=== PATIENT | female | born 1945 | race Hispanic/Latino ===

== ENCOUNTER 2018-05-20 12:11 | Inpatient (IN) | payer MEDICARE ==
[2018-05-20 12:44] LABS: VENOUS BLOOD GAS BASE EXCESS 7.1 mmol/L (0.0-2.0); VENOUS BLOOD GAS PCO2 45 mmHg (40-60); VENOUS BLOOD GAS PO2 24 mm/Hg (30-55); VENOUS BLOOD PH 7.46 (7.32-7.43)
[2018-05-20 12:54] LABS: BASO # 0.1 K/uL (0.0-0.2); BASO % 0.5 % (0.0-2.0); HEMOGLOBIN 9.6 g/dL (11.0-16.0); LYMPH # 1.4 K/uL (1.0-4.3); LYMPH % 7.4 % (20.0-40.0); MEAN CELL VOLUME 81.9 fL (81.0-99.0); MEAN CORPUSCULAR HEMOGLOBIN 25.9 pg (27.0-31.0); MEAN CORPUSCULAR HGB CONC 31.6 g/dL (33.0-37.0); MEAN PLATELET VOLUME 7.2 fL (7.2-11.7); MONO # 1.2 K/uL (0.0-0.8); MONO % 6.7 % (0.0-10.0); NEUT % 85.4 % (50.0-75.0); RED CELL DISTRIBUTION WIDTH 20.4 % (11.5-14.5); WHITE BLOOD COUNT 18.7 K/uL (4.8-10.8)
[2018-05-20 13:07] LABS: PLATELET COUNT 1023 K/uL (130-400)
[2018-05-20 13:10] LABS: ALB/GLOB RATIO 0.7 (1.0-2.1); ALBUMIN 3.1 g/dL (3.5-5.0); ALT/SGPT 31 U/L (9-52); AST/SGOT 193 U/L (14-36); BLOOD UREA NITROGEN 19 mg/dL (7-17); CALCIUM 9.2 mg/dl (8.6-10.4); GFR NON-AFRICAN AMERICAN > 60
[2018-05-20 13:25] LABS: SQUAMOUS EPITHIAL 2 /hpf (0-5); URINE AMORPHOUS SEDIMENT RARE /ul (<OCC); URINE BACTERIA RARE (<OCC); URINE BILIRUBIN NEGATIVE (NEGATIVE); URINE BLOOD NEGATIVE (NEGATIVE); URINE CLARITY Turbid (Clear); URINE COLOR Amber (YELLOW); URINE GLUCOSE (UA) NORMAL (Normal); URINE LEUKOCYTE ESTERASE NEG Leu/uL (Negative); URINE PROTEIN 2+ mg/dL (NEGATIVE); URINE UROBILINOGEN NORMAL mg/dL (0.2-1.0)
[2018-05-20 13:31] LABS: ANISOCYTOSIS SLIGHT; LYMPHOCYTE 10 % (20-40); MONOCYTE 9 % (0-10); NEUTROPHIL 82 % (50-75); PLATELET ESTIMATE MARKEDLY INCREASED (NORMAL); POIKILOCYTOSIS SLIGHT; TOTAL CELLS COUNTED 100
[2018-05-20 13:32] LABS: GIANT PLATELETS PRESENT; HYPOCHROMIC SLIGHT; LARGE PLATELETS PRESENT; OVALOCYTES SLIGHT; TARGET CELLS SLIGHT
--- NOTE | 2018-05-20 13:32 | C.PDOC ---
History Of Present Illness WORSENING GEN WEAKNESS, AMS SINCE 05/16. ADMITTED @ [facility] 04/29, DX METASTATIC CA, +PE, PNEUMONIA. DC 05/12 TO [facility]. S/P SLIP AND FALL, READMITTED [facility] 05/14, "NEG HEAD SCAN" PER . READMITTED TO [place], SINCE THEN W DECR APPETITE, +10 LB WT LOSS, GEN WEAKNESS. ABLE TO WALK BUT NOW TOO WEAK TO STAND. NO FEVER, NV. ON ELIQUIS. PT CO GEN WEAKNESS, DENIES FOCAL PAIN OR GI BLEED. STATES BROUGHT PT TO DR CHAUDHRY FOR SECOND OPINION ON PROBABLE METASTATIC CA. EXAM MOD DIST APPEARS WEAK, CACHECTIC HEENT ATRAUM; MM DRY; EOMI NECK SUPPLE LUNGS CTA B/L NO W/R/R ABD +RUQ SWELL, TENSE NONTEND SOFT NEURO NO GROSS FOCAL DEF AO3 SKIN INTACT NO ULCERATION; MULT OLD ECHYMOSIS BUTTOCKS, B/L UE/LE EXT AROM WO DIFF NO GROSS DEFORM REMAINDER NEG Time Seen by Provider: 05/20/18 13:05 Chief Complaint (Nursing): Shortness Of Breath History Per: Patient, Family History/Exam Limitations: None Onset/Duration Of Symptoms: Days Current Symptoms Are (Timing): Still Present Past Medical History Reviewed: Historical Data, Nursing Documentation, Vital Signs Vital Signs: Last Vital Signs Temp 99.6 F 05/20/18 13:13 Pulse 121 H 05/20/18 13:13 Resp 35 H 05/20/18 13:13 BP 118/79 05/20/18 13:13 Pulse Ox 95 05/20/18 12:25 - Medical History PMH: Bronchitis, Pneumonia, Pulmonary Embolism Surgical History: No Surg Hx Family History: States: No Known Family Hx - Social History Hx Alcohol Use: No Hx Substance Use: No - Immunization History Hx Tetanus Toxoid Vaccination: No Hx Influenza Vaccination: No Hx Pneumococcal Vaccination: No Review Of Systems Except As Marked, All Systems Reviewed And Found Negative. Constitutional: Positive for: Weakness. Negative for: Fever, Chills Neurological: Positive for: Altered Mental Status Physical Exam - Physical Exam Appears: Other (moderate distress, weak,cachectic) Skin: Normal Color, Warm, Dry, Ecchymosis (mult old echymosis to b/l UE/LE and buttocks) Head: Atraumatic, Normacephalic Eye(s): bilateral: Normal Inspection, EOMI Oral Mucosa: Dry Neck: Supple Cardiovascular: Rhythm Regular Respiratory: Normal Breath Sounds, No Rales, No Rhonchi, No Wheezing Gastrointestinal/Abdominal: Soft, No Tenderness, No Guarding, No Rebound, Other (RUQ swelling, tense abdomen) Extremity: Normal ROM (AROM w/o difficulty), No Deformity Neurological/Psych: Oriented x3 (AO3), Other (no gross focal deficits) ED Course And Treatment - Laboratory Results Result Diagrams: 05/20/18 12:45 05/20/18 12:45 Lab Results: pO2 24 mm/Hg (30-55) L 05/20/18 12:40 VBG pH 7.46 (7.32-7.43) H 05/20/18 12:40 VBG pCO2 45 mmHg (40-60) 05/20/18 12:40 VBG HCO3 29.1 mmol/L 05/20/18 12:40 VBG Total CO2 33.4 mmol/L (22-28) H 05/20/18 12:40 VBG O2 Sat (Calc) 30.4 % (40-65) L 05/20/18 12:40 VBG Base Excess 7.1 mmol/L (0.0-2.0) H 05/20/18 12:40 VBG Potassium 4.8 mmol/L (3.6-5.2) 05/20/18 12:40 Sodium 137.0 mmol/l (132-148) 05/20/18 12:40 Chloride 103.0 mmol/L (98-107) 05/20/18 12:40 Glucose 94 mg/dl (65-105) 05/20/18 12:40 Lactate 2.9 mmol/L (0.7-2.1) H 05/20/18 12:40 Total Bilirubin 1.4 mg/dL (0.2-1.3) H 05/20/18 12:45 AST 193 U/L (14-36) H 05/20/18 12:45 ALT 31 U/L (9-52) 05/20/18 12:45 Alkaline Phosphatase 724 U/L (38-126) H 05/20/18 12:45 Total Protein 7.3 g/dL (6.3-8.3) 05/20/18 12:45 Albumin 3.1 g/dL (3.5-5.0) L 05/20/18 12:45 Globulin 4.2 gm/dL (2.2-3.9) H 05/20/18 12:45 Albumin/Globulin Ratio 0.7 (1.0-2.1) L 05/20/18 12:45 Urine Color Maddie (YELLOW) 05/20/18 13:08 Urine Clarity Turbid (Clear) 05/20/18 13:08 Urine pH 5.0 (5.0-8.0) 05/20/18 13:08 Ur Specific [place] 1.024 (1.003-1.030) 05/20/18 13:08 Urine Protein 2+ mg/dL (NEGATIVE) H 05/20/18 13:08 Urine Glucose (UA) Normal mg/dL (Normal) 05/20/18 13:08 Urine Ketones Negative mg/dL (NEGATIVE) 05/20/18 13:08 Urine Blood Negative (NEGATIVE) 05/20/18 13:08 Urine Nitrate Negative (NEGATIVE) 05/20/18 13:08 Urine Bilirubin Negative (NEGATIVE) 05/20/18 13:08 Urine Urobilinogen Normal mg/dL (0.2-1.0) 05/20/18 13:08 Ur Leukocyte Esterase Neg Eva/uL (Negative) 05/20/18 13:08 Urine WBC (Auto) 5 /hpf (0-5) 05/20/18 13:08 Urine RBC (Auto) 2 /hpf (0-3) 05/20/18 13:08 Ur Squamous Epith Cells 2 /hpf (0-5) 05/20/18 13:08 Amorphous Sediment Rare /ul (<OCC) H 05/20/18 13:08 Urine Bacteria Rare (<OCC) 05/20/18 13:08 ECG: Interpreted By Me ECG Rhythm: Sinus Tachycardia ECG Interpretation: Abnormal Rate From EC O2 Sat by Pulse Oximetry: 95 (RA) Pulse Ox Interpretation: Normal - Other Rad CXR X-Ray: Viewed By Me, Read By Radiologist Interpretation: Chest x-ray single frontal view. HISTORY: Altered mental st atus. COMPARISON: None available. Findings: Right PICC line with tip extending to the cavoatrial junction. Small loculated right pleural effusion. Consolidative opacifications seen within the right mid to lower lung zone as well as the left lung base. Radiopaque rounded density projecting over the right lung base. Enlarged ectatic aorta. Cardiomegaly. Scoliotic curvature of the spine. Degenerative changes in the spine. Impression: Right PICC line with tip extending to the cavoatrial junction. Small loculated right pleural effusion. Consolidative opacifications seen within the right mid to lower lung zone as well as the left lung base. Radiopaque rounded density projecting over the right lung base. Enlarged ectatic aorta. Cardiomegaly. Scoliotic curvature of the spine. Degenerative changes in the spine. - CT Scan/US CT-Head Other Rad Studies (CT/US): Read By Radiologist, Radiology Report Reviewed CT/US Interpretation: Date of service: 05/20/2018. PROCEDURE: CT HEAD WITHOUT CONTRAST. HISTORY: trauma ams ON ELIQUIS. COMPARISON: None available. TECHNIQUE: Axial computed tomography images were obtained through the head/brain without intravenous contrast. Radiation dose: Total exam DLP = 867.35 mGy-cm. This CT exam was performed using one or more of the following dose reduction techniques: Automated exposure control, adjustment of the mA and/or kV according to patient size, and/or use of iterative reconstruction technique. FINDINGS: HEMORRHAGE: No intracranial hemorrhage. BRAIN: No mass effect or edema. Mild-moderate cerebral atrophy present. Bilateral patchy deep white matter areas of hypodensity without gross mass effect-chronic microvascular ischemic changes compatible with this.. Those findings are in the centrum semiovale location. Right frontal subcortical hypodensity sagittal series 601, image 32 and coronal series 602, image 76-chronicity of this is unclear. No hemorrhage here noted. No definitive mass effect associated here noted either. May also be related to white matter ischemic changes. Chronicity unknown no comparison studies are available. If further evaluation is needed consider MRI of the brain. VENTRICLES: Lateral 3rd and 4th mild ventriculomegaly probably commensurate with the degree of atrophy. CALVARIUM: Unremarkable. PARANASAL SINUSES: Unremarkable as visualized. No significant inflammatory changes. MASTOID AIR CELLS: Unremarkable as visualized. No inflammatory changes. OTHER FINDINGS: None. IMPRESSION: No intracranial hemorrhage or mass effect. Cerebral atrophy and deep white matter and right frontal lobe subcortical hypodensities possibly relating to white matter ischemic changes. The chronicity of all these findings is unknown. No gross associated mass effect on anyone site appreciated. Clinical correlation and follow-up recommended. CT-Chest Other Rad Studies (CT/US): Read By Radiologist, Radiology Report Reviewed CT/US Interpretation: IMPRESSION: Multiple emboli present left and right pulmonary arteries and more distal left lower lobe pulmonary branches as detailed above. This was discussed directly with the ER physician prior to concluding this exam. Apparently the patient had a outside study referencing pulmonary emboli and hence the reason for patient's blood thinner medication. Clots also noted in the IVC and at minimum left common iliac vein-chronicity unknown. Right pleural thickening/with pleural fluid possibly loculated. Bilateral pleural based nodules much more numerous and larger on the right side as detailed above. Pleural based metastases are a consideration. Correlation with prior outside imaging recommended. Severe dextroscoliosis thoracic no gross bony lytic lesions seen. Large expansile mass essentially replacing the right hepatic lobe with mass effect displacement on the right kidney. Malignancy is suspect. Nonspecific right renal and splenic lesions. Benign and malignant etiologies here possible. Nonvisualized right adrenal gland. Nonvisualized gallbladder. No dilated ducts. Subcutaneous edema asymmetrically prominent blending amorphous fluid like density right lateral inferior chest wall and upper abdomen asymmetrical fluid. However liquified blood along with edema can also simulate this. No hyperdense typical hemorrhage seen. Clinical correlation and follow-up recommended. Other findings as above. Progress - Re-Evaluation Re-evaluation Note: 05/20/18 13:29 D/W DR Gillian CHAUDHRY: PENDING PT INFO FROM [facility]. AWARE OF ER FINDINGS, WILL CONSULT. 05/20/18 13:36 d/w pt pmd dr leos [phone]: ASCITES, 15 CM LIVER PROB METS, ?COLON OR RENAL CA. FAILED ATTEMPT COLONOSCOPY; LIVER BIOPSY +ADENOCARCINOMA. +PLEURAL EFFUSION. NEG HEAD CT FROM TRAUMA 05/16 CHEM WNL LFT WNL WBC 10 PLT 201 05/20/18 15:52 D/W DR CALIXTO CHEST CLOT PA HYPOPLASIA, R PLEURAL EFFUSION, NODULES A/P LG LIVER MASS R HEPATIC LOBE 15 CM; SPLENIC LESION; R RENAL MASS; CLOTS IVC TO L COMMON ILIAC NO HEMORRHAGE 05/20/18 16:37 d/w dr HARRELL [facility] [employer] CONSULTANT AWARE OF ER FINDINGS WILL ADMIT - Data Reviewed Data Reviewed: Lab, Diagnostic imaging, EKG, Old records - Critical Care Citical Care: Excluding Proc Time Critical Care Time: 90 minutes Medical Decision Making Medical Decision Making: Plan: --Labs --UA --EKG --CXR --CT-Head --CT-Chest/Abd/Pelv. Disposition - Disposition Disposition: HOSPITALIZED Disposition Time: 16:01 Condition: SERIOUS Instructions: Weakness (ED) Forms: [facility] (U[place]) - POA Present On Arrival: Falls Or Trauma - Clinical Impression Clinical Impression: Metastatic cancer, Generalized weakness - Scribe Statement The provider has reviewed the documentation as recorded by the Kwasi Briscoe Provider Attestation: All medical record entries made by the Kwasi were at my direction and personally dictated by me. I have reviewed the chart and agree that the record accurately reflects my personal performance of the history, physical exam, medical decision making, and the department course for this patient. I have also personally directed, reviewed, and agree with the discharge instructions and disposition.
--- NOTE | 2018-05-20 14:01 | RAD ---
Chest x-ray single frontal view HISTORY: Altered mental status. COMPARISON: None available. Findings: Right PICC line with tip extending to the cavoatrial junction. Small loculated right pleural effusion. Consolidative opacifications seen within the right mid to lower lung zone as well as the left lung base. Radiopaque rounded density projecting over the right lung base. Enlarged ectatic aorta. Cardiomegaly. Scoliotic curvature of the spine. Degenerative changes in the spine. Impression: Right PICC line with tip extending to the cavoatrial junction. Small loculated right pleural effusion. Consolidative opacifications seen within the right mid to lower lung zone as well as the left lung base. Radiopaque rounded density projecting over the right lung base. Enlarged ectatic aorta. Cardiomegaly. Scoliotic curvature of the spine. Degenerative changes in the spine.
[2018-05-20] MEDS ORDERED: Iodixanol 320 MG/ML 100 ML BOTTLE IV ONE (14:18)
--- NOTE | 2018-05-20 15:16 | CT ---
Date of service: 05/20/2018 PROCEDURE: CT HEAD WITHOUT CONTRAST. HISTORY: trauma ams ON ELIQUIS COMPARISON: None available. TECHNIQUE: Axial computed tomography images were obtained through the head/brain without intravenous contrast. Radiation dose: Total exam DLP = 867.35 mGy-cm. This CT exam was performed using one or more of the following dose reduction techniques: Automated exposure control, adjustment of the mA and/or kV according to patient size, and/or use of iterative reconstruction technique. FINDINGS: HEMORRHAGE: No intracranial hemorrhage. BRAIN: No mass effect or edema. Mild-moderate cerebral atrophy present. Bilateral patchy deep white matter areas of hypodensity without gross mass effect-chronic microvascular ischemic changes compatible with this.. Those findings are in the centrum semiovale location Right frontal subcortical hypodensity sagittal series 601, image 32 and coronal series 602, image 76-chronicity of this is unclear. No hemorrhage here noted. No definitive mass effect associated here noted either. May also be related to white matter ischemic changes. Chronicity unknown no comparison studies are available. If further evaluation is needed consider MRI of the brain VENTRICLES: Lateral 3rd and 4th mild ventriculomegaly probably commensurate with the degree of atrophy CALVARIUM: Unremarkable. PARANASAL SINUSES: Unremarkable as visualized. No significant inflammatory changes. MASTOID AIR CELLS: Unremarkable as visualized. No inflammatory changes. OTHER FINDINGS: None. IMPRESSION: No intracranial hemorrhage or mass effect. Cerebral atrophy and deep white matter and right frontal lobe subcortical hypodensities possibly relating to white matter ischemic changes. The chronicity of all these findings is unknown. No gross associated mass effect on anyone site appreciated. Clinical correlation and follow-up recommended.
--- NOTE | 2018-05-20 16:15 | CT ---
Date of service: 05/20/2018 PROCEDURE: CT Chest, Abdomen and Pelvis with intravenous contrast HISTORY: trauma ams ON ELIQUIS COMPARISON: None available. TECHNIQUE: IV dose administered: 100 cc Visipaque 320 Radiation dose: Total exam DLP = 438.16 mGy-cm. This CT exam was performed using one or more of the following dose reduction techniques: Automated exposure control, adjustment of the mA and/or kV according to patient size, and/or use of iterative reconstruction technique. FINDINGS: CT CHEST WITH CONTRAST: LUNGS: Severe dextroscoliosis with the right hemithoracic hypoplasia noted. Extensive right pleural thickening/right pleural effusion some of which may be loculated is also noted. This blends with right perifissural and right basal consolidation and air bronchograms. Pleural base nodules and perifissural nodules and/or loculated fluid components-with Hounsfield units greater than 20 are noted one perifissural near the right lung base measures 2.8 by 1.7 cm. Another anterior lateral to it also at the right lung base measures 1.5 x 1.5 cm. Findings are noted on axial series 3 and 4, image 61. Additional areas of pleural based nodularity blending with areas of consolidation are seen more cephalad posterior right upper lobe series 4, image 30 1.5 cm in maximum dimension here and lateral pleural-based nodule right upper lobe 1.4 cm (series 4, image 27. Coalescent pleural-based nodularity is lateral level of the franko noted on series 4, image 42. Additional small pleural base nodules right lateral lung base more anterior and lateral series 4, image 70 1 measures 6 by another focus is approximately 12 mm (series 4, image 72. Pleural-based metastatic lesions needed be considered. Sub cm pleural-based calcification left lung base laterally series 4, image 65 sub cm left posterolateral pleural-based coalescent nodularity series 4, image 63 15 by 7 R[place] and blending with left hemidiaphragmatic surface series 4, image 66 lateral left perifissural nonspecific nodularity 7 mm series 4, image 68 MEDIASTINUM: Thread like elongated filling defect left anterior pulmonary artery branch overseas series 3, image 45 chronicity of a clot here a precisely unknown. No focal bulbous dilatation here seen. Filling defect also extends into the left main pulmonary artery measuring approximately 6 by 7 mm overseas axis series 3, image 46 an additional pulmonary embolus in a left lower lobe pulmonary arterial branch series 3, image 56 this measures 18 x 7 mm in size is axis series 3, image 56 with suspect additional continuing smaller filling defects in the more distal branches of the same. [place] axis series 3, image 60. Filling defect compatible with clot in the right pulmonary artery approximately 4 cm from its main pulmonary artery branch point axis series 3, image 49 normal caliber aorta and pulmonary arterial trunk. No aortic dissection. Normal size heart. LYMPH NODES: Unremarkable. PLEURA: Unremarkable. No pneumothorax. No pleural fluid. BONES: Apart from the right rib cage deformity-no gross fracture or lytic lesion seen. However the severe deformity here impedes optimal evaluation for such. Costovertebral osteoarthrosis and diffuse spondylosis. OTHER FINDINGS: None. CT ABDOMEN AND PELVIS: LIVER: Hepatomegaly. A large hypodense mass like lesion probable coalescent smaller locules within it essentially fills/replaces the right hepatic lobe. This extension into the left hepatic lobe as well. The mass measures at least 15 cm in width and 15 cm in anterior posterior dimension. The mass is at least 17 cm in cephalo caudal extent.. It also inferiorly displaces the right kidney and the right renal artery appears stretched on coronal series 604, image 48 There may be some peripheral areas of mild enhancement greater density than the surrounding breast parenchyma or compression of the parenchyma No dilated ducts noted. GALLBLADDER AND BILE DUCTS: Not identified. No clips appreciated. Correlate clinically. No gross dilated ducts seen. PANCREAS: The body and tail are markedly hypoplastic. No gross pathology of the pancreatic head seen. SPLEEN: Approximately 15 mm lesion in the inferior spleen is noted Hounsfield units greater than a simple cyst. ADRENALS: A right adrenal gland is not identified. The left adrenal gland limbs appear normal. KIDNEYS AND URETERS: .. No hydronephrosis. A 1 cm posterior right lower renal pole cortical hypodense mass is noted this may represent a complicated cyst. However hypodense circumscribed renal neoplasm or metastatic lesion cannot be excluded. Its Hounsfield units are greater than typically seen for a simple cyst. Left parapelvic renal cysts suggested VASCULATURE: The intrahepatic IVC segment is difficult to identify the IVC somewhat flattened in appearance on series 6 image 57 with some uneven opacification of it cephalad to this some clot within the IVC is suspect (axial series 6, image 67 and this continues inferiorly where clot in the left common iliac vein is suspect overseas axis series 6, image 90 an approximately 1 cm hypodensity in the inferior right kidney on axial No aortic atherosclerotic calcification or mural plaque present no aortic aneurysm. BOWEL: Unremarkable. No obstruction. No gross mural thickening. APPENDIX: Not identified. PERITONEUM: There is some free fluid in the pelvis. No free air. LYMPH NODES: No enlarged lymph nodes. BLADDER: Under distended otherwise unremarkable REPRODUCTIVE: Unremarkable. BONES: No gross fracture seen. Marked scoliosis. Prominent right lumbar level marginal osteophytes. OTHER FINDINGS: Bilateral subcutaneous edema-asymmetric on the right-although no hyperdense hemorrhage of the right lateral abdominal wall lower chest wall seen. Some liquified lower density blood here cannot be excluded. Subcutaneous fluid and edema can also simulate this. Clinical follow-up recommended. IMPRESSION: Multiple emboli present left and right pulmonary arteries and more distal left lower lobe pulmonary branches as detailed above. This was discussed directly with the ER physician prior to concluding this exam. Apparently the patient had a outside study referencing pulmonary emboli and hence the reason for patient's blood thinner medication. Clots also noted in the IVC and at minimum left common iliac vein-chronicity unknown. Right pleural thickening/with pleural fluid possibly loculated. Bilateral pleural based nodules much more numerous and larger on the right side as detailed above. Pleural based metastases are a consideration. Correlation with prior outside imaging recommended. Severe dextroscoliosis thoracic no gross bony lytic lesions seen. Large expansile mass essentially replacing the right hepatic lobe with mass effect displacement on the right kidney. Malignancy is suspect. Nonspecific right renal and splenic lesions. Benign and malignant etiologies here possible. Nonvisualized right adrenal gland. Nonvisualized gallbladder. No dilated ducts. Subcutaneous edema asymmetrically prominent blending amorphous fluid like density right lateral inferior chest wall and upper abdomen asymmetrical fluid. However liquified blood along with edema can also simulate this. No hyperdense typical hemorrhage seen. Clinical correlation and follow-up recommended. Other findings as above.
[2018-05-20] MEDS ORDERED: metroNIDAZOLE IV 500 mg/100 ml 500 MG/100 ML BAG ONE (18:34)
[2018-05-20] MEDS ORDERED: Sodium Chloride 0.9% 1,000 ML ONE (18:34)
[2018-05-20] MEDS: metroNIDAZOLE IV 500 mg/100 ml 500 MG/100 ML BAG IVPB SCH (18:34)
[2018-05-20] MEDS: Sodium Chloride 0.9% 1,000 ML IV SCH (18:35)
[2018-05-20] MEDS: cefTRIAXone IV 1 gm in Dextros 50 ML IVPB SCH (20:04)
[2018-05-21] MEDS: metroNIDAZOLE IV 500 mg/100 ml 500 MG/100 ML BAG IVPB SCH ×3 (02:35→17:43)
[2018-05-21] MEDS: cefTRIAXone IV 1 gm in Dextros 50 ML IVPB SCH (10:19)
--- NOTE | 2018-05-21 12:16 | CARD ---
APPROVED REPORT Date of service: 05/20/2018 EKG Measurement Heart [id number] <Conclusion> Sinus tachycardia with premature atrial complexes Nonspecific T wave abnormality Abnormal ECG
[2018-05-21] MEDS: Sodium Chloride 0.9% 1,000 ML IV SCH ×2 (12:25→15:00)
[2018-05-21 15:15] LABS: BASO # 0.1 K/uL (0.0-0.2); BASO % 0.5 % (0.0-2.0); MONO # 1.3 K/uL (0.0-0.8)
[2018-05-21 15:26] LABS: HEMOGLOBIN 8.5 g/dL (11.0-16.0); LYMPH # 1.2 K/uL (1.0-4.3); LYMPH % 6.1 % (20.0-40.0); MEAN CELL VOLUME 82.9 fL (81.0-99.0); MEAN CORPUSCULAR HEMOGLOBIN 25.4 pg (27.0-31.0); MEAN CORPUSCULAR HGB CONC 30.6 g/dL (33.0-37.0); MEAN PLATELET VOLUME 7.1 fL (7.2-11.7); MONO % 6.5 % (0.0-10.0); NEUT # 17.1 K/uL (1.8-7.0); NEUT % 86.9 % (50.0-75.0); RBC 3.34 Mil/uL (3.80-5.20); RED CELL DISTRIBUTION WIDTH 20.3 % (11.5-14.5); WHITE BLOOD COUNT 19.7 K/uL (4.8-10.8)
[2018-05-21 15:31] LABS: PLATELET COUNT 819 K/uL (130-400)
[2018-05-21 15:35] LABS: BLOOD UREA NITROGEN 17 mg/dL (7-17); CALCIUM 7.7 mg/dl (8.6-10.4); GFR NON-AFRICAN AMERICAN > 60
[2018-05-21 15:54] LABS: ANISOCYTOSIS SLIGHT; HYPOCHROMIC SLIGHT; LYMPHOCYTE 6 % (20-40); MONOCYTE 5 % (0-10); NEUTROPHIL 89 % (50-75); PLATELET ESTIMATE MARKEDLY INCREASED (NORMAL); POIKILOCYTOSIS SLIGHT; TOTAL CELLS COUNTED 100
[2018-05-21 15:55] LABS: BURR CELLS SLIGHT; LARGE PLATELETS PRESENT; TARGET CELLS SLIGHT
--- NOTE | 2018-05-21 17:49 | CON ---
DATE: 05/21/2018 HEMATOLOGY/ONCOLOGY CONSULTATION HISTORY OF PRESENT ILLNESS: The patient is a 72-year-old woman with a difficult history to understand. I saw her yesterday in the office, she came for a second opinion. She was told she has cancer in her liver. The story goes that she was evidently well according to her . Recently, she started losing some weight and went to the hospital at [facility] and she was there for 12 days. They did a colonoscopy, they did a liver biopsy, various x-rays and sent her home saying that there was nothing they can do for her as she has cancer in the liver. She was in the rehab for six days and came to the office. On presentation to the office, she looked very, very weak. She could barely standup. We just laid her down on the chairs. They called the ambulance right away to bring her to [facility]. She was coherent and verbal. She said only that she had back pain and that is why she had to lie down. Her pulse is 134 in the office just sitting, but the blood pressure was reasonable, was over 110. PHYSICAL EXAMINATION: SKIN: No petechiae. No bruises. HEENT: Temporal wasting noted. NODES: Nonpalpable in the axillary, cervical, supraclavicular, or inguinal regions. BREAST: No mass, discharge or dimpling. LUNGS: Difficult to assess as she did not take deep breath. Decreased breath sounds at the bases. HEART: S1, S2, very rapid but regular. ABDOMEN: No liver, no spleen, no tenderness. No rebound. No ascites. EXTREMITIES: No edema. CENTRAL NERVOUS SYSTEM: Plantars are downgoing bilaterally. LABORATORY DATA: Showed a white count of 18,000 with 7% lymphs, hemoglobin 9.6 with an MCV of 82 and a platelet count of a little over a million. The electrolytes were normal. Her calcium was 9.2, BUN was 19, creatinine 0.6 which is a big surprise. Glucose was 114. Her liver functions were mildly elevated, bilirubin 1.4, AST 193, alk phos 724. The CAT scan showed multiple emboli in the left and right pulmonary arteries. She tells me that she was told that she had had pulmonary emboli at the [facility] and was put on Eliquis. She has also noted an IVC in the left common iliac vein, which we do not know how long. Right pleural thickening with possible pleural fluid loculated, bilateral pleural-based nodules right greater than left, and pleural-based metastasis as well. She had no obvious lytic lesions on the bones. She has a large expansile mass replacing the right lobe in the liver with the mass effect displacing the right kidney and a lot of edema. Now, I have a biopsy report that I am putting into the chart. This was the done at the [facility] and the first was a colonoscopy and the colonoscopy shows a sigmoid colon biopsy, which showed no evidence of colitis, basement membrane thickening, or malignancy in the material examined, but in the gross description, there was a piece of fragment that was literally 0.1 cm to 1 mm and this says no cancer. The second is the liver biopsy and also the pathology is based on two fragments of pink tissue, each is 0.1 cm and the second is 0.1 cm, basically total 2 mm, and the biopsy reports just metastatic well-differentiated adenocarcinoma and more than that we cannot tell. So, according to this 2 mm with the tissue, it seems to be adenocarcinoma of the liver. Radiologically, of course, it also shows diagnosis of cancer, probably metastatic to the liver and to the lungs. At this point, the patient is quite weak. I would do a second biopsy of the liver when stable and off the Eliquis if possible because we do not know have any markers in terms of PD-L1 in terms of EGFR etc. However, because she is so weak and because of the Eliquis, I would NOT repeat the biopsy of the liver and take her off the Eliquis. I will continue on the Eliquis and as an outpatient, I will do a liquid biopsy that is basically a blood test and I will do it in the office to check for the various possible treatments we might want to give her and then if she was stable enough, we will consider giving her chemotherapy. So, at this point, she is quite weak. I would rule out sepsis, rule out any other reasons for her weakness and then I would have her come back to the office and do that liquid biopsy and then make a decision on chemotherapy versus hospice, but they are not ready for hospice. Julito MD Ralph
--- NOTE | 2018-05-21 21:18 | CP.PCM.HP ---
Present on Admission - Present on Admission Any Indicators Present on Admission: No Past Patient History - Past Medical History & Family History Past Medical History?: Yes - Past Social History Smoking Status: Never Smoked - CARDIAC Hx Cardiac Disorders: No - PULMONARY Hx Respiratory Disorders: Yes Hx Bronchitis: Yes Hx Pneumonia: Yes Hx Pulmonary Embolism: Yes - NEUROLOGICAL Hx Neurological Disorder: No - HEENT Hx HEENT Problems: No - RENAL Hx Chronic Kidney Disease: No - ENDOCRINE/METABOLIC Hx Endocrine Disorders: No - HEMATOLOGICAL/ONCOLOGICAL Hx Blood Disorders: Yes Hx Cancer: Yes (liver) - INTEGUMENTARY Hx Dermatological Problems: No - MUSCULOSKELETAL/RHEUMATOLOGICAL Hx Falls: Yes - GASTROINTESTINAL Hx Gastrointestinal Disorders: Yes Other/Comment: Incontinence - GENITOURINARY/GYNECOLOGICAL Hx Genitourinary Disorders: Yes Hx Incontinence: Yes - PSYCHIATRIC Hx Substance Use: No - SURGICAL HISTORY Hx Surgeries: No Other/Comment: right arm PICC - ANESTHESIA Hx Anesthesia: No Hx Anesthesia Reactions: No Hx Malignant Hyperthermia: No Has any member of the family had a problem w/ anesthesia?: No Meds Allergies/Adverse Reactions: Allergies Allergy/AdvReac Type Severity Reaction Status Date / Time No Known Allergies Allergy Verified 05/20/18 12:31 Results - Vital Signs Recent Vital Signs: Last Vital Signs Temp 97.5 F L 05/21/18 16:00 Pulse 112 H 05/21/18 16:00 Resp 18 05/21/18 16:00 BP 105/68 05/21/18 16:00 Pulse Ox 98 05/21/18 16:00 - Labs Result Diagrams: 05/21/18 15:08 05/21/18 15:08 Labs: Laboratory Results - last 24 hr 05/21/18 05/21/18 15:08 15:08 WBC 19.7 H RBC 3.34 L Hgb 8.5 L Hct 27.7 L MCV 82.9 MCH 25.4 L MCHC 30.6 L RDW 20.3 H Plt Count 819 H D MPV 7.1 L Neut % (Auto) 86.9 H Lymph % (Auto) 6.1 L [place] % (Auto) 6.5 Eos % (Auto) 0.0 Baso % (Auto) 0.5 Neut # (Auto) 17.1 H Lymph # (Auto) 1.2 [place] # (Auto) 1.3 H Eos # (Auto) 0.0 Baso # (Auto) 0.1 Neutrophils % (Manual) 89 H Lymphocytes % (Manual) 6 L Monocytes % (Manual) 5 Platelet Estimate Markedly increased H Large Platelets Present Hypochromasia (manual) Slight Poikilocytosis (manual Slight Anisocytosis (manual) Slight Target Cells Slight Ronnie Cells Slight Sodium 134 Potassium 3.8 Chloride 100 Carbon Dioxide 23 Anion Gap 15 BUN 17 Creatinine 0.5 L Est GFR ( Amer) > 60 Est GFR (Non-Af Amer) > 60 Random Glucose 90 Calcium 7.7 L
--- NOTE | 2018-05-21 22:24 | CP.PCM.CON ---
History of Present Illness - History of Present Illness History of Present Illness: History Of Present Illness WORSENING GEN WEAKNESS, AMS SINCE 05/16. ADMITTED @ [facility] 04/29, DX METAS TATIC CA, +PE, PNEUMONIA. DC 05/12 TO [facility]. S/P SLIP AND FALL, READMITTED [facility] 05/14, "NEG HEAD SCAN" PER . READMITTED TO [facility], SINCE THEN W DECR APPETITE, +10 LB WT LOSS, GEN WEAKNESS. ABLE TO WALK BUT NOW TOO WEAK TO STAND. NO FEVER, NV. ON ELIQUIS. PT CO GEN WEAKNESS, DENIES FOCAL PAIN OR GI BLEED. STATES BROUGHT PT TO DR CHAUDHRY FOR SECOND OPINION ON PROBABLE METASTATIC CA. Slim and weak patient who said she is raising pets, mainly bug Birds, like parrots, as she has no children EXAM MOD DIST APPEARS WEAK, CACHECTIC HEENT ATRAUM; MM DRY; EOMI NECK SUPPLE LUNGS CTA B/L NO W/R/R ABD +RUQ SWELL, TENSE NONTEND SOFT NEURO NO GROSS FOCAL DEF AO3 SKIN INTACT NO ULCERATION; MULT OLD ECHYMOSIS BUTTOCKS, B/L UE/LE EXT AROM WO DIFF NO GROSS DEFORM REMAINDER NEG Time Seen by Provider: 05/20/18 13:05 Chief Complaint (Nursing): Shortness Of Breath History Per: Patient, Family History/Exam Limitations: None Onset/Duration Of Symptoms: Days Current Symptoms Are (Timing): Still Present Past Medical History Reviewed: Historical Data, Nursing Documentation, Vital Signs Vital Signs: Last Vital Signs Temp 99.6 F 05/20/18 13:13 Pulse 121 H 05/20/18 13:13 Resp 35 H 05/20/18 13:13 BP 118/79 05/20/18 13:13 Pulse Ox 95 05/20/18 12:25 Allergies Allergy/AdvReac Type Severity Reaction Status Date / Time No Known Allergies Allergy Verified 05/20/18 12:31 - Medical History PMH: Bronchitis, Pneumonia, Pulmonary Embolism Surgical History: No Surg Hx Family History: States: No Known Family Hx - Social History Hx Alcohol Use: No Hx Substance Use: No - Immunization History Hx Tetanus Toxoid Vaccination: No Hx Influenza Vaccination: No Hx Pneumococcal Vaccination: No Review Of Systems Except As Marked, All Systems Reviewed And Found Negative. Constitutional: Positive for: Weakness. Negative for: Fever, Chills Neurological: Positive for: Altered Mental Status Physical Exam - Physical Exam Appears: Other (moderate distress, weak,cachectic) Skin: Normal Color, Warm, Dry, Ecchymosis (mult old echymosis to b/l UE/LE and buttocks) Head: Atraumatic, Normacephalic Eye(s): bilateral: Normal Inspection, EOMI Oral Mucosa: Dry Neck: Supple Cardiovascular: Rhythm Regular Respiratory: Normal Breath Sounds, No Rales, No Rhonchi, No Wheezing Gastrointestinal/Abdominal: Soft, No Tenderness, No Guarding, No Rebound, Other (RUQ swelling, tense abdomen) Extremity: Normal ROM (AROM w/o difficulty), No Deformity Neurological/Psych: Oriented x3 (AO3), Other (no gross focal deficits) ED Course And Treatment - Laboratory Results Result Diagrams: 05/20/18 12:45 05/20/18 12:45 Lab Results: pO2 24 mm/Hg (30-55) L 05/20/18 12:40 VBG pH 7.46 (7.32-7.43) H 05/20/18 12:40 VBG pCO2 45 mmHg (40-60) 05/20/18 12:40 VBG HCO3 29.1 mmol/L 05/20/18 12:40 VBG Total CO2 33.4 mmol/L (22-28) H 05/20/18 12:40 VBG O2 Sat (Calc) 30.4 % (40-65) L 05/20/18 12:40 VBG Base Excess 7.1 mmol/L (0.0-2.0) H 05/20/18 12:40 VBG Potassium 4.8 mmol/L (3.6-5.2) 05/20/18 12:40 Sodium 137.0 mmol/l (132-148) 05/20/18 12:40 Chloride 103.0 mmol/L (98-107) 05/20/18 12:40 Glucose 94 mg/dl (65-105) 05/20/18 12:40 Lactate 2.9 mmol/L (0.7-2.1) H 05/20/18 12:40 Total Bilirubin 1.4 mg/dL (0.2-1.3) H 05/20/18 12:45 AST 193 U/L (14-36) H 05/20/18 12:45 ALT 31 U/L (9-52) 05/20/18 12:45 Alkaline Phosphatase 724 U/L (38-126) H 05/20/18 12:45 Total Protein 7.3 g/dL (6.3-8.3) 05/20/18 12:45 Albumin 3.1 g/dL (3.5-5.0) L 05/20/18 12:45 Globulin 4.2 gm/dL (2.2-3.9) H 05/20/18 12:45 Albumin/Globulin Ratio 0.7 (1.0-2.1) L 05/20/18 12:45 Urine Color Maddie (YELLOW) 05/20/18 13:08 Urine Clarity Turbid (Clear) 05/20/18 13:08 Urine pH 5.0 (5.0-8.0) 05/20/18 13:08 Ur Specific [place] 1.024 (1.003-1.030) 05/20/18 13:08 Urine Protein 2+ mg/dL (NEGATIVE) H 05/20/18 13:08 Urine Glucose (UA) Normal mg/dL (Normal) 05/20/18 13:08 Urine Ketones Negative mg/dL (NEGATIVE) 05/20/18 13:08 Urine Blood Negative (NEGATIVE) 05/20/18 13:08 Urine Nitrate Negative (NEGATIVE) 05/20/18 13:08 Urine Bilirubin Negative (NEGATIVE) 05/20/18 13:08 Urine Urobilinogen Normal mg/dL (0.2-1.0) 05/20/18 13:08 Ur Leukocyte Esterase Neg Eva/uL (Negative) 05/20/18 13:08 Urine WBC (Auto) 5 /hpf (0-5) 05/20/18 13:08 Urine RBC (Auto) 2 /hpf (0-3) 05/20/18 13:08 Ur Squamous Epith Cells 2 /hpf (0-5) 05/20/18 13:08 Amorphous Sediment Rare /ul (<OCC) H 05/20/18 13:08 Urine Bacteria Rare (<OCC) 05/20/18 13:08 ECG Rhythm: Sinus Tachycardia ECG Interpretation: Abnormal Rate From EC O2 Sat by Pulse Oximetry: 95 (RA) Pulse Ox Interpretation: Normal Impression of CXR: Right PICC line with tip extending to the cavoatrial junction. Small loculated right pleural effusion. Consolidative opacifications seen within the right mid to lower lung zone as well as the left lung base. Radiopaque rounded density projecting over the right lung base. Enlarged ectatic aorta. Cardiomegaly. Scoliotic curvature of the spine. Degenerative changes in the spine. IMPRESSION of CT Brain: No intracranial hemorrhage or mass effect. Cerebral atrophy and deep white matter and right frontal lobe subcortical hypodensities possibly relating to white matter ischemic changes. The chronicity of all these findings is unknown. No gross associated mass effect on anyone site appreciated. Clinical correlation and follow-up recommended. IMPRESSION of CT Angio Chest and Abdomen: Multiple emboli present left and right pulmonary arteries and more distal left lower lobe pulmonary branches as detailed above. This was discussed directly with the ER physician prior to concluding this exam. Apparently the patient had a outside study referencing pulmonary emboli and hence the reason for patient's blood thinner medication. Clots also noted in the IVC and at minimum left common iliac vein-chronicity unknown. Right pleural thickening/with pleural fluid possibly loculated. Bilateral pleural based nodules much more numerous and larger on the right side as detailed above. Pleural based metastases are a consideration. Correlation with prior outside imaging recommended. Severe dextroscoliosis thoracic no gross bony lytic lesions seen. Large expansile mass essentially replacing the right hepatic lobe with mass effect displacement on the right kidney. Malignancy is suspect. Nonspecific right renal and splenic lesions. Benign and malignant etiologies here possible. Nonvisualized right adrenal gland. Nonvisualized gallbladder. No dilated ducts. Subcutaneous edema asymmetrically prominent blending amorphous fluid like density right lateral inferior chest wall and upper abdomen asymmetrical fluid. However liquified blood along with edema can also simulate this. No hyperdense typical hemorrhage seen. Clinical correlation and follow-up recommended. Other findings as above. - Past Social History Smoking Status: Never Smoked - CARDIAC Hx Cardiac Disorders: No - PULMONARY Hx Respiratory Disorders: Yes Hx Bronchitis: Yes Hx Pneumonia: Yes Hx Pulmonary Embolism: Yes - NEUROLOGICAL Hx Neurological Disorder: No - HEENT Hx HEENT Problems: No - RENAL Hx Chronic Kidney Disease: No - ENDOCRINE/METABOLIC Hx Endocrine Disorders: No - HEMATOLOGICAL/ONCOLOGICAL Hx Blood Disorders: Yes Hx Cancer: Yes (liver) - INTEGUMENTARY Hx Dermatological Problems: No - MUSCULOSKELETAL/RHEUMATOLOGICAL Hx Falls: Yes - GASTROINTESTINAL Hx Gastrointestinal Disorders: Yes Other/Comment: Incontinence - GENITOURINARY/GYNECOLOGICAL Hx Genitourinary Disorders: Yes Hx Incontinence: Yes - PSYCHIATRIC Hx Substance Use: No - SURGICAL HISTORY Hx Surgeries: No Other/Comment: right arm PICC - ANESTHESIA Hx Anesthesia: No Hx Anesthesia Reactions: No Hx Malignant Hyperthermia: No Has any member of the family had a problem w/ anesthesia?: No Impression: HYPOPLASIA, R PLEURAL EFFUSION, NODULES A/P LG LIVER MASS R HEPATIC LOBE 15 CM; SPLENIC LESION; R RENAL MASS; CLOTS IVC TO L COMMON ILIAC NO HEMORRHAGE Condition: SERIOUS Weakness (ED) Present On Arrival: Falls Or Trauma Clinical Impression: Metastatic cancer, Generalized weakness Past Patient History - Past Medical History & Family History Past Medical History?: Yes - Past Social History Smoking Status: Never Smoked - CARDIAC Hx Cardiac Disorders: No - PULMONARY Hx Respiratory Disorders: Yes Hx Bronchitis: Yes Hx Pneumonia: Yes Hx Pulmonary Embolism: Yes - NEUROLOGICAL Hx Neurological Disorder: No - HEENT Hx HEENT Problems: No - RENAL Hx Chronic Kidney Disease: No - ENDOCRINE/METABOLIC Hx Endocrine Disorders: No - HEMATOLOGICAL/ONCOLOGICAL Hx Blood Disorders: Yes Hx Cancer: Yes (liver) - INTEGUMENTARY Hx Dermatological Problems: No - MUSCULOSKELETAL/RHEUMATOLOGICAL Hx Falls: Yes - GASTROINTESTINAL Hx Gastrointestinal Disorders: Yes Other/Comment: Incontinence - GENITOURINARY/GYNECOLOGICAL Hx Genitourinary Disorders: Yes Hx Incontinence: Yes - PSYCHIATRIC Hx Substance Use: No - SURGICAL HISTORY Hx Surgeries: No Other/Comment: right arm PICC - ANESTHESIA Hx Anesthesia: No Hx Anesthesia Reactions: No Hx Malignant Hyperthermia: No Has any member of the family had a problem w/ anesthesia?: No Meds Allergies/Adverse Reactions: Allergies Allergy/AdvReac Type Severity Reaction Status Date / Time No Known Allergies Allergy Verified 05/20/18 12:31 - Medications Medications: Current Medications Acetaminophen (Tylenol 325mg Tab) 650 mg PO Q6 PRN PRN Reason: Pain, moderate (4-7) Last Admin: 05/21/18 12:20 Dose: 650 mg Metronidazole (Flagyl) 500 mg in 100 mls @ 100 mls/hr IVPB Q8H VERO; Protocol Last Admin: 05/21/18 17:43 Dose: 100 mls/hr Sodium Chloride (Sodium Chloride 0.9%) 1,000 mls @ 100 mls/hr IV .Q10H VERO Last Admin: 05/21/18 15:00 Dose: Not Given Ceftriaxone Sodium (Rocephin Iv 1 Gm Duplex) 50 mls @ 100 mls/hr IVPB DAILY VERO; Protocol Last Admin: 05/21/18 10:19 Dose: 100 mls/hr Influenza Virus Vaccine (Flucelvax Quad 5092-0806 Syr) 60 mcg IM .ONCE ONE Stop: 05/24/18 14:01 Pantoprazole Sodium (Protonix Inj) 40 mg IVP DAILY VERO Last Admin: 05/21/18 10:19 Dose: 40 mg Pneumococcal Polyvalent Vaccine (Pneumovax 23 Vaccine) 0.5 ml IM .ONCE ONE Stop: 05/24/18 14:01 Physical Exam - Neurological Exam Additional comments: Slim and weak cachectic patient who said she is raising pets, mainly bug Birds, like parrots, as she has no children head trauma and facial trauma and right eye brow abrasion due to falling Mental status: Patient is fully awake, alert, oriented, fluent coherent speech, looks tired and depressed Normal memory. Cranial nerves II to XII: No deficits Motor: Weakness and atrophic muscles. Tone: Slightly reduced Power: Mainly general weakness, 4 to 5-/5 DTR 0/4 Toes are down going on plantar stimulation Sensory: no deficits are appreciated Cerebellar: Normal FNT, HST Tandem walking: Unable She said she uses a walker and she fell and hurt her face., right side of the face around the Right eye brow. Results - Vital Signs Recent Vital Signs: Last Vital Signs Temp 97.5 F L 05/21/18 16:00 Pulse 112 H 05/21/18 16:00 Resp 18 05/21/18 16:00 BP 105/68 05/21/18 16:00 Pulse Ox 98 05/21/18 16:00 - Labs Result Diagrams: 05/21/18 15:08 05/21/18 15:08 Labs: Laboratory Results - last 24 hr 05/21/18 05/21/18 15:08 15:08 WBC 19.7 H RBC 3.34 L Hgb 8.5 L Hct 27.7 L MCV 82.9 MCH 25.4 L MCHC 30.6 L RDW 20.3 H Plt Count 819 H D MPV 7.1 L Neut % (Auto) 86.9 H Lymph % (Auto) 6.1 L [place] % (Auto) 6.5 Eos % (Auto) 0.0 Baso % (Auto) 0.5 Neut # (Auto) 17.1 H Lymph # (Auto) 1.2 [place] # (Auto) 1.3 H Eos # (Auto) 0.0 Baso # (Auto) 0.1 Neutrophils % (Manual) 89 H Lymphocytes % (Manual) 6 L Monocytes % (Manual) 5 Platelet Estimate Markedly increased H Large Platelets Present Hypochromasia (manual) Slight Poikilocytosis (manual Slight Anisocytosis (manual) Slight Target Cells Slight [place] Cells Slight Sodium 134 Potassium 3.8 Chloride 100 Carbon Dioxide 23 Anion Gap 15 BUN 17 Creatinine 0.5 L Est GFR ( Amer) > 60 Est GFR (Non-Af Amer) > 60 Random Glucose 90 Calcium 7.7 L Assessment & Plan (1) Generalized weakness Assessment and Plan: Due to her general condition and her wide spread cancer Status: Chronic (2) Metastatic cancer Assessment and Plan: Cancer lung and liver are causing generalized weakness. 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 Work Up will performed Status: Acute (4) Seizures Assessment and Plan: Seizures are to be ruled out. H/O head trauma and facial trauma and right eye brow abrasion due to falling Status: Acute (5) Malignant neoplasm metastatic to nervous system structure Assessment and Plan: This is to be ruled out, including Brain mets and Spinal cord mets Myopathy due to malignancy is to be ruled out Tests will be performed. Status: Acute (6) Histoplasmosis Assessment and Plan: She is raising big birds and is exposed to them and to their stools and cleans after them The symptoms of Histoplasmosis look like Cancer Lung and may expand to other organs. An ID Consult and Pulmonary consult are needed and her biopsy results are n eeded. Status: Acute
[2018-05-22] MEDS: Sodium Chloride 0.9% 1,000 ML IV SCH ×3 (00:36→14:45)
[2018-05-22] MEDS: metroNIDAZOLE IV 500 mg/100 ml 500 MG/100 ML BAG IVPB SCH ×3 (01:11→17:25)
--- NOTE | 2018-05-22 05:04 | HP ---
CHIEF COMPLAINT: Generalized weakness and altered mental status for five days. HISTORY OF PRESENT ILLNESS: This is a 72-year-old white female who looks chronically sick, undernourished. The patient was admitted on 04/29/2018 at [facility] with metastatic cancer, pulmonary embolism, pneumonia. [facility] After slip and fall, she was re-admitted at [facility] on 05/14/2018. Head CT was negative. She was re-admitted to subacute rehab. She has over 10 pounds of weight loss. She has generalized weakness. She was able to walk before she got sick, but now she is not able to walk. The patient has been losing weight according to , and he decided to bring the patient to different hospital for a second opinion. Further details are not available. The patient is being followed up by Dr. Rosas. Source of primary is unknown. It is metastatic. It is a spreaded cancer. The patient is weak. She is awake, alert, and oriented x3 with generalized weakness. She has extreme weight loss. The patient is weak, ill looking. REVIEW OF SYSTEMS: Not obtainable, however, apparently the patient is weak, the patient is cachectic. The patient has tiredness, anorexia. She has minimal ability to move around. She denies any chest pain. She has dizziness. The patient denies any history of any recent head injury, fall, loss of consciousness. She denies any seizure-like activity. She denies any fever or chills. The patient is weak and tired. No further details are available. ALLERGIES: UNKNOWN. CURRENT MEDICATIONS: Eliquis. SOCIAL HISTORY: Nonsmoker, non-EtOH user. PHYSICAL EXAMINATION: GENERAL: An elderly female, sick looking, dehydrated. VITAL SIGNS: Blood pressure 105/68, pulse 112, respiratory rate 15, and temperature 97.5. SKIN: Senile turgor. No bruises. No purpura. HEENT: Atraumatic and normocephalic. Positive pallor. Negative jaundice. Extraocular movements are intact. NECK: Supple. No JVD. No lymph nodes. No thyromegaly. CHEST WALL: Bilateral symmetrical expansion. No tenderness. No deformity. LUNGS: Clear. No rales. No rhonchi. CARDIOVASCULAR SYSTEM: PMI in fifth intercostal space. No heave. No thrill. No rigors. ABDOMEN: Soft and nontender. Bowel sounds are positive. RECTAL: Deferred. PELVIC: Deferred. EXTREMITIES: No muscle mass. CENTRAL NERVOUS SYSTEM: Awake, alert, and oriented x3. DIAGNOSTIC DATA: On the CT of the chest, the patient has bilateral pulmonary nodules, pulmonary emboli, large expansile mass replacing right hepatic lobe. ASSESSMENT: 1. Dehydration. 2. Pulmonary embolism. 3. Metastatic cancer, primary unknown. 4. Malnutrition. PLAN: Admit. We will get hem/onc consult. We will hydrate the patient. Antibiotics. Septic workup. Monitor the patient. We will discuss with the family about possibility of palliative care. Demetri Johnson MD
[2018-05-22] MEDS: cefTRIAXone IV 1 gm in Dextros 50 ML IVPB SCH (09:43)
[2018-05-22 10:12] LABS: BASO # 0.1 K/uL (0.0-0.2); BASO % 0.4 % (0.0-2.0); HEMOGLOBIN 8.3 g/dL (11.0-16.0); LYMPH # 0.9 K/uL (1.0-4.3); LYMPH % 5.3 % (20.0-40.0); MEAN CELL VOLUME 83.7 fL (81.0-99.0); MEAN CORPUSCULAR HEMOGLOBIN 25.5 pg (27.0-31.0); MEAN CORPUSCULAR HGB CONC 30.5 g/dL (33.0-37.0); MEAN PLATELET VOLUME 7.3 fL (7.2-11.7); MONO # 1.2 K/uL (0.0-0.8); NEUT # 14.6 K/uL (1.8-7.0); NEUT % 87.3 % (50.0-75.0); PLATELET COUNT 807 K/uL (130-400); RBC 3.26 Mil/uL (3.80-5.20); RED CELL DISTRIBUTION WIDTH 20.4 % (11.5-14.5); WHITE BLOOD COUNT 16.7 K/uL (4.8-10.8)
[2018-05-22 10:57] LABS: LYMPHOCYTE 5 % (20-40); MONOCYTE 4 % (0-10); NEUTROPHIL 91 % (50-75); TOTAL CELLS COUNTED 100
[2018-05-22 10:58] LABS: ANISOCYTOSIS SLIGHT; HYPOCHROMIC SLIGHT; PLATELET ESTIMATE INCREASED (NORMAL); POLYCHROMIC SLIGHT
[2018-05-22 11:33] LABS: INR 1.9
[2018-05-22 12:39] LABS: RAPID PLASMA REAGIN NONREACTIVE (NONREACTIVE)
--- NOTE | 2018-05-22 13:51 | PN ---
DATE: 05/22/2018 LOCATION: 653, bed B. SUBJECTIVE: This is a 72-year-old female seen and examined initially for GI consultation on 05/21/2018 as requested by the admitting medical team, being examined again today with very poor oral intake, complaining of abdominal pain postprandial abdominal distention with generalized weakness and malaise. The patient is scheduled today for carotid Doppler testing as well as EEG. No reported chest pain, palpitation, or significant complaint of shortness of breath. Most recent lab results as per yesterday showed leukocytosis of 19.7, hemoglobin 8.5, hematocrit 27.7 with thrombocytopenia of 819. Calcium 7.7 with elevated AST, total bilirubin, alkaline phosphatase with low albumin. Today's lactic acid is 4.6. Most recently done head CAT scan report is seen. Abdominal and the pelvic CAT scan as well as chest CAT scan reports are seen with report of multiple emboli in the left and right pulmonary arteries. Rest of the report is seen with large expandable mass in the right hepatic lobe with mass effect, displacement of the right kidney, malignancy is suspected with nonspecific right renal and splenic lesions. PHYSICAL EXAMINATION: GENERAL: A 72-year-old female with poor oral intake. VITAL SIGNS: Afebrile with pulse of 106, respiratory rate 20 to 22, blood pressure 106/70. HEENT: Pale dry oral mucous membrane. Nonicteric sclerae. LUNGS: Few scattered crepitation. Decreased air entry at bases. HEART: Positive S1 and S2. ABDOMEN: Soft with mild distention, mild generalized tenderness. No mass or organomegaly. No rebound tenderness. No guarding. EXTREMITIES: Without edema, clubbing, or cyanosis. NEUROLOGIC: No reported new neurological deficits, sensory, or motor IMPRESSION: 1. Abnormal CAT scan of the abdomen and pelvis. 2. Rule out occult gastrointestinal malignancy. 3. Anemia secondary to occult gastrointestinal malignancy. SUGGESTIONS: 1. Agree with your plan. 2. EGD at a.m. 3. Cancer markers. 4. Further recommendations to follow. Balbina Doran MD
--- NOTE | 2018-05-22 21:17 | CP.PCM.PN ---
Subjective - Date & Time of Evaluation Date of Evaluation: 05/22/18 Time of Evaluation: 08:20 - Subjective Subjective: dictated Objective - Vital Signs/Intake and Output Vital Signs (last 24 hours): Temp Pulse Resp BP Pulse Ox 97.8 F 114 H 20 110/71 98 05/22/18 16:00 05/22/18 16:00 05/22/18 16:00 05/22/18 16:00 05/22/18 16:00 Intake and Output: 05/22/18 05/23/18 18:59 06:59 Intake Total 1100 Balance 1100 - Medications Medications: Current Medications Acetaminophen (Tylenol 325mg Tab) 650 mg PO Q6 PRN PRN Reason: Pain, moderate (4-7) Last Admin: 05/22/18 10:53 Dose: 650 mg Metronidazole (Flagyl) 500 mg in 100 mls @ 100 mls/hr IVPB Q8H VERO; Protocol Last Admin: 05/22/18 17:25 Dose: 100 mls/hr Sodium Chloride (Sodium Chloride 0.9%) 1,000 mls @ 100 mls/hr IV .Q10H VERO Last Admin: 05/22/18 14:45 Dose: 100 mls/hr Ceftriaxone Sodium (Rocephin Iv 1 Gm Duplex) 50 mls @ 100 mls/hr IVPB DAILY VERO; Protocol Last Admin: 05/22/18 09:43 Dose: 100 mls/hr Influenza Virus Vaccine (Flucelvax Quad [id number] Syr) 60 mcg IM .ONCE ONE Stop: 05/24/18 14:01 Pantoprazole Sodium (Protonix Inj) 40 mg IVP DAILY VERO Last Admin: 05/22/18 09:44 Dose: 40 mg Pneumococcal Polyvalent Vaccine (Pneumovax 23 Vaccine) 0.5 ml IM .ONCE ONE Stop: 05/24/18 14:01 - Labs Labs: 05/22/18 10:00 05/21/18 15:08 PT 21.0 SECONDS (9.7-12.2) H 05/22/18 11:13 INR 1.9 05/22/18 11:13 APTT 27 SECONDS (21-34) 05/22/18 11:13
--- NOTE | 2018-05-23 00:02 | PN ---
DATE: 05/22/2018 SUBJECTIVE: The patient is afebrile. The patient is seen by palliative care. The patient's markers for pancreatic and colon cancer are high. PHYSICAL EXAMINATION: VITAL SIGNS: Blood pressure is 110/71, pulse 114, respiratory rate 20, and temperature 97.8 LUNGS: Clear. CARDIOVASCULAR SYSTEM: S1 and S2, regular. ABDOMEN: Soft. ASSESSMENT: 1. Metastatic stage IV colon cancer, it could be pancreatic cancer. 2. Malnutrition. 3. Dehydration. 4. Septicemia. 5. Gastrointestinal bleed. The patient has rectal bleeding. The patient is not a candidate for Eliquis, because her hemoglobin is steadily dropping. Demetri Johnson MD
--- NOTE | 2018-05-23 00:12 | CP.PCM.PN ---
Subjective - Date & Time of Evaluation Date of Evaluation: 05/22/18 Time of Evaluation: 22:45 - Subjective Subjective: Patient has no change in her condition. Physical exam is unchanged. She is cachectic, weak, having difficulty walking, enlarged liver. High Tumor markers. High AST. She is she is having abnormal lab work showing leukocytosis of 19K, Eosinophils are 0 She is seen by greenkeeper Dr Rosas and Ergonomist Dr Ayoub Biopsy results need to be performed again, but it is not possible for being on Elliquis Blood culture is negative. Objective - Vital Signs/Intake and Output Vital Signs (last 24 hours): Temp Pulse Resp BP Pulse Ox 97.8 F 114 H 20 110/71 98 05/22/18 16:00 05/22/18 16:00 05/22/18 16:00 05/22/18 16:00 05/22/18 16:00 Intake and Output: 05/22/18 05/23/18 18:59 06:59 Intake Total 1100 Balance 1100 - Medications Medications: Current Medications Acetaminophen (Tylenol 325mg Tab) 650 mg PO Q6 PRN PRN Reason: Pain, moderate (4-7) Last Admin: 05/22/18 10:53 Dose: 650 mg Metronidazole (Flagyl) 500 mg in 100 mls @ 100 mls/hr IVPB Q8H VERO; Protocol Last Admin: 05/22/18 17:25 Dose: 100 mls/hr Sodium Chloride (Sodium Chloride 0.9%) 1,000 mls @ 100 mls/hr IV .Q10H VERO Last Admin: 05/22/18 14:45 Dose: 100 mls/hr Ceftriaxone Sodium (Rocephin Iv 1 Gm Duplex) 50 mls @ 100 mls/hr IVPB DAILY VERO; Protocol Last Admin: 05/22/18 09:43 Dose: 100 mls/hr Influenza Virus Vaccine (Flucelvax Quad 1016-0443 Syr) 60 mcg IM .ONCE ONE Stop: 05/24/18 14:01 Pantoprazole Sodium (Protonix Inj) 40 mg IVP DAILY VERO Last Admin: 05/22/18 09:44 Dose: 40 mg Pneumococcal Polyvalent Vaccine (Pneumovax 23 Vaccine) 0.5 ml IM .ONCE ONE Stop: 05/24/18 14:01 - Labs Labs: 05/22/18 10:00 05/21/18 15:08 PT 21.0 SECONDS (9.7-12.2) H 05/22/18 11:13 INR 1.9 05/22/18 11:13 APTT 27 SECONDS (21-34) 05/22/18 11:13 Assessment and Plan (1) Generalized weakness Status: Chronic (2) Metastatic cancer Status: Acute (3) Eaton-Lambert myasthenic syndrome Status: Acute (4) Seizures Status: Acute (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
[2018-05-23] MEDS: metroNIDAZOLE IV 500 mg/100 ml 500 MG/100 ML BAG IVPB SCH ×3 (01:45→17:11)
[2018-05-23] MEDS: Sodium Chloride 0.9% 1,000 ML IV SCH ×3 (01:45→16:25)
[2018-05-23 06:27] LABS: MEAN CORPUSCULAR HEMOGLOBIN 25.4 pg (27.0-31.0); RBC 3.16 Mil/uL (3.80-5.20); RED CELL DISTRIBUTION WIDTH 20.1 % (11.5-14.5); WHITE BLOOD COUNT 18.3 K/uL (4.8-10.8)
[2018-05-23] MEDS ORDERED: Gadodiamide 287 MG/ML VIAL (15ML) IV ONE (10:13)
[2018-05-23] MEDS: cefTRIAXone IV 1 gm in Dextros 50 ML IVPB SCH (11:00)
--- NOTE | 2018-05-23 11:55 | MRI ---
Date of service: 05/23/2018 PROCEDURE: MRI BRAIN WITH AND WITHOUT CONTRAST HISTORY: R/O Metastatic cancer, R/o metastatic Histoplasmos COMPARISON: None available. TECHNIQUE: Multiplanar, multisequence MR images of the brain were obtained with and without intravenous contrast enhancement. Omniscan was injected intravenously. FINDINGS: HEMORRHAGE: None DWI: No evidence of an acute or early subacute infarction. BRAIN PARENCHYMA: There are moderate chronic microangiopathic changes. There is chronic infarctions/gliosis in the right anterior superior frontal subcortical white matter. There is no mass, mass effect or abnormal extra-axial fluid collection. There is no territorial infarction. The midline sagittal structures are normal. ENHANCEMENT: No abnormal intracranial enhancement. VENTRICLES: There is mild age-related global parenchymal volume loss and proportionate enlargement of the ventricles and cortical sulci. There is a cavum septum pellucidum. CRANIUM: There is normal bone marrow signal pattern. ORBITS: Grossly unremarkable. PARANASAL SINUSES/MASTOIDS: Predominantly clear. VASCULAR SYSTEM: There are normal signal voids in the larger intracranial arteries. OTHER FINDINGS: None . IMPRESSION: No acute intracranial abnormality. Specifically, no evidence for metastatic disease. Moderate chronic microangiopathic changes and mild age-related global parenchymal volume loss. Old infarctions/gliosis in the left frontal anterior superior subcortical white matter.
--- NOTE | 2018-05-23 12:47 | PN ---
DATE: 05/23/2018 LOCATION: 653, bed B. SUBJECTIVE: This 72-year-old female, seen and examined early today, was scheduled initially for upper endoscopy to rule out primary gastric CA with mets to the liver. However, the patient for a reason or another was given at 08:30 in the morning according to the nursing staff, and then subsequently, she was sent to MRI of the head without informing the endoscopy room. At this point, I contacted the nursing agency manager who investigated the whole situation after waiting for the patient to be returned to the endoscopy room after almost 2 hours. At this point, the patient apparently refused to have upper endoscopy or any other aggressive procedure as recommended also by the oncology/hematology consult done. The entire chart is reviewed including, but not limited to the most recent lab and radiology study results, and today's hemoglobin 8, hematocrit 25.9 with low indices highly suggestive of hypochromic microcytic anemia with thrombocytosis of 823. Her CEA was 6090 and CA 19-9 was more than 10,000. CA-125 antigen was 95.8 with extensive elevation. PHYSICAL EXAMINATION: GENERAL: A 72-year-old female. VITAL SIGNS: Afebrile with pulse of 102, respiratory rate 20-22, blood pressure of 120/72. HEENT: Showed pale dry oral mucous membrane. Nonicteric sclerae. LUNGS: Few scattered crepitation. Decreased air entry at bases. HEART: Positive S1 and S2. ABDOMEN: Soft with mild generalized tenderness. No mass or organomegaly. No rebound tenderness or guarding. Abdominal distention with tenderness noticed. EXTREMITIES: Evidence of muscle wasting syndrome with mild lower extremity edematous changes. No clubbing or cyanosis. NEUROLOGIC: No reported new neurological deficits, sensory or motor. No reported new focal deficits. IMPRESSION: 1. Liver mass lesion, believed to be secondary to carcinoma of the liver or possible metastatic hepatic lesions, primary lesion is unclear at this point. 2. Excessive elevation of all the cancer markers with possible primary colon versus pancreatic versus ovarian carcinoma. 3. Anemia, most likely secondary to above. The patient will need blood transfusion. 4. Abnormal CAT scan of the abdomen and pelvis secondary to above. SUGGESTIONS: 1. Agree with your plan. 2. At this point, conservative treatment only to follow and no aggressive GI workup to be involved. We will follow up closely with you. Thank you for letting me to participate in your patient's case management. Balbina Doran MD
--- NOTE | 2018-05-23 12:49 | CP.PCM.CON ---
History of Present Illness - History of Present Illness History of Present Illness: Palliative Consult requested by Doctor Johnson for goals of care discussion, re metastatic disease Patient is a 72 yo female [place] the hospital [place] with weakness and AMA. prior to [facility] patient was treated at [place] for Pneumonia and PE, sent to [facility] where she fail than was readmitted to [facility]. CT head was negative, patient sent back to [facility]. Ever since this series of events, patient's appetite has decreased and she become noticeable weak. Patient lost about 10 lb since 05/16/18. On this admission CT chest was significant for multiple PEs and lung mets originating from the liver. Doctor Ralph was called on consult and no treatments were suggested at this time. The liquid biopsy as an outpatient was suggested if patient gets better. Patient is started on Flagyl IV and Rocephin IV. Blood and urine cultures are pending. WBC 18.3 Patient's condition is very complex and prognosis is poor. Patient's has difficult time accepting it. Palliative care was called to offer support and discuss goals of care. PMH: metastatic cancer, pneumonia, PE, IVC filter Fam. Hx: , lives at home fam. Hx: Unknown Review of Systems - Constitutional Constitutional: Daytime Sleepiness, Fatigue, Lethargy, Malaise, Weight Loss, Weakness - EENT Eyes: absent: As Per HPI, Blind Spots, Blurred Vision, Change in Vision, Decreased Night Vision, Diplopia, Discharge, Dry Eye, Exophthalmos, Floaters, Irritation, Itchy Eyes, Loss of Peripheral Vision, Pain, Photophobia, Requires Corrective Lenses, Sees Flashes, Spots in Vision, Tunnel Vision, Other Visual Disturbances, Loss of Vision, Other Ears: absent: As Per HPI, Decreased Hearing, Ear Discharge, Ear Pain, Tinnitus, Abnormal Hearing, Disequilibrium, Dizziness, Other Nose/Mouth/Throat: Dry Mouth - Breasts Breasts: absent: As Per HPI, Change in Shape, Mass, Pain, Nipple Discharge, Nipple Inversion, Skin Changes, Swelling, Other - Cardiovascular Cardiovascular: Dyspnea, Dyspnea on Exertion - Respiratory Respiratory: Dyspnea on Exertion - Gastrointestinal Additional comments: poor appetite - Genitourinary Additional comments: incontinent - Reproductive: Female Reproductive:Female: Post Menopausal - Menstruation Menstruation: Post Menopausal - Musculoskeletal Musculoskeletal: Muscle Weakness - Integumentary Integumentary: Dry Skin - Neurological Neurological: Focal Weakness, Weakness - Psychiatric Psychiatric: absent: As Per HPI, Abnormal Sleep Pattern, Anhedonia, Anxiety, Auditory Hallucinations, Behavioral Changes, Change in Appetite, Change in Libido, Confusion, Depression, Difficulty Concentrating, Hallucinations, Homicidal Ideation, Hopelessness, Irritability, Memory Loss, Mood Swings, Panic Attacks, Paranoia, Suicidal Ideation, Visual Hallucinations, Tactile Hallucinations, Other - Endocrine Endocrine: Change in Body Appearance - Hematologic/Lymphatic Hematologic: absent: As Per HPI, Easy Bleeding, Easy Bruising, Lymphadenopathy, Other Past Patient History - Past Medical History & Family History Past Medical History?: Yes - Past Social History Smoking Status: Never Smoked - CARDIAC Hx Cardiac Disorders: No - PULMONARY Hx Respiratory Disorders: Yes Hx Bronchitis: Yes Hx Pneumonia: Yes Hx Pulmonary Embolism: Yes - NEUROLOGICAL Hx Neurological Disorder: No - HEENT Hx HEENT Problems: No - RENAL Hx Chronic Kidney Disease: No - ENDOCRINE/METABOLIC Hx Endocrine Disorders: No - HEMATOLOGICAL/ONCOLOGICAL Hx Blood Disorders: Yes Hx Cancer: Yes (liver) - INTEGUMENTARY Hx Dermatological Problems: No - MUSCULOSKELETAL/RHEUMATOLOGICAL Hx Falls: Yes - GASTROINTESTINAL Hx Gastrointestinal Disorders: Yes Other/Comment: Incontinence - GENITOURINARY/GYNECOLOGICAL Hx Genitourinary Disorders: Yes Hx Incontinence: Yes - PSYCHIATRIC Hx Substance Use: No - SURGICAL HISTORY Hx Surgeries: No Other/Comment: right arm PICC - ANESTHESIA Hx Anesthesia: No Hx Anesthesia Reactions: No Hx Malignant Hyperthermia: No Has any member of the family had a problem w/ anesthesia?: No Meds Allergies/Adverse Reactions: Allergies Allergy/AdvReac Type Severity Reaction Status Date / Time No Known Allergies Allergy Verified 05/20/18 12:31 - Medications Medications: Current Medications Acetaminophen (Tylenol 325mg Tab) 650 mg PO Q6 PRN PRN Reason: Pain, moderate (4-7) Last Admin: 05/23/18 03:11 Dose: 650 mg Metronidazole (Flagyl) 500 mg in 100 mls @ 100 mls/hr IVPB Q8H VERO; Protocol Last Admin: 05/23/18 11:00 Dose: 100 mls/hr Sodium Chloride (Sodium Chloride 0.9%) 1,000 mls @ 100 mls/hr IV .Q10H VERO Last Admin: 05/23/18 06:17 Dose: Not Given Ceftriaxone Sodium (Rocephin Iv 1 Gm Duplex) 50 mls @ 100 mls/hr IVPB DAILY VERO; Protocol Last Admin: 05/23/18 11:00 Dose: 100 mls/hr Influenza Virus Vaccine (Flucelvax Quad [id number] Syr) 60 mcg IM .ONCE ONE Stop: 05/24/18 14:01 Pantoprazole Sodium (Protonix Inj) 40 mg IVP DAILY [facility] Last Admin: 05/23/18 11:00 Dose: 40 mg Pneumococcal Polyvalent Vaccine (Pneumovax 23 Vaccine) 0.5 ml IM .ONCE ONE Stop: 05/24/18 14:01 Physical Exam - Constitutional Appears: No Acute Distress, Chronically Ill - Head Exam Head Exam: ATRAUMATIC, NORMAL INSPECTION, NORMOCEPHALIC Additional comments: right above the eye are old scab, post fall at [place] - Eye Exam Eye Exam: EOMI, Normal appearance, PERRL Pupil Exam: NORMAL ACCOMODATION, PERRL - ENT Exam ENT Exam: Mucous Membranes Dry - Neck Exam Neck exam: Positive for: Normal Inspection - Respiratory Exam Respiratory Exam: Decreased Breath Sounds, NORMAL BREATHING PATTERN - Cardiovascular Exam Cardiovascular Exam: Tachycardia, Irregular Rhythm - GI/Abdominal Exam GI & Abdominal Exam: Normal Bowel Sounds, Soft - Rectal Exam Rectal Exam: Deferred - Extremities Exam Extremities exam: Positive for: normal capillary refill, normal inspection, pedal pulses present - Back Exam Back exam: NORMAL INSPECTION - Neurological Exam Neurological exam: Alert, Oriented x3 - Psychiatric Exam Psychiatric exam: Normal Affect, Normal Mood - Skin Skin Exam: Dry, Intact, Pallor, Warm Results - Vital Signs Recent Vital Signs: Last Vital Signs Temp 97.2 F L 05/23/18 07:00 Pulse 110 H 05/23/18 07:00 Resp 20 05/23/18 07:00 BP 115/74 05/23/18 07:00 Pulse Ox 97 05/23/18 07:00 - Labs Result Diagrams: 05/23/18 06:13 05/21/18 15:08 Labs: Laboratory Results - last 24 hr 05/22/18 05/22/18 05/23/18 06:48 11:13 06:13 WBC 18.3 H RBC 3.16 L Hgb 8.0 L Hct 25.9 L MCV 82.0 MCH 25.4 L MCHC 31.0 L RDW 20.1 H Plt Count 823 H MPV 7.0 L Carcinoembryonic Ag 6090.0 H CA 19-9 Antigen > 04752 H RPR Nonreactive Assessment & Plan - Assessment and Plan (Free Text) Assessment: Palliative consult There is no advance directive on chart, PPS 20% I reviewed all medical records, diagnostic studies, examined and interviewed patient in the bed Patient is alert, oriented X 3 , speech is clear . Post brain MRI just now; no brain mets seen on the MRI. Patient looks cachectic, pale and chronically ill. Patient hopes she will " go home today and get some rest from all this exams". Breathing is shallow, regular RR, mild dyspnea with repositioning in bed noted. HR 110, irregular rhythm, denies chest pain.O2Sat 97 % NC Abdomen is flat, active bowel sounds, incontinent of urine. patient was NPO for MRI, oral mucousa dry, states is thirsty. I did mouth care and gave her sip of water and she took it well. LEs are with pedal pulses, no edema and limited ROM due to weakness. Patient r eports not being able to walk due to weakness and has been on bed rest most of the time. WBC 18.3, Hb 8.0 dropped from 9.5, CA 19 > 98032 BP 115/74, HR 110, afebrile I attempted goals of care discussion with patient but very carefully since patient looked very weak . I elicited her understanding about her diagnosis but patient appeared not being aware of metastatic disease nor she knew who Doctor Ralph was. Patient denied being under any cancer treatment in the past. I did not disclose to a patient her current diagnosis but instead asked if I could talk to her about goals of care. She gave me permission. I discussed patient's condition with Doctor Ralph who was under the impression that patient's condition was very complex and her life expectancy was short. I shared this with Doctor Johnson. I called X 2 and left voice mails asking for call back. Until now I have not heard from him. was not at bed side either. Impression * Metastatic disease, which patent is not aware of * Generalized weakness * Bedridden * Unwanted weight loss * Prognosis is poor, no cancer treatment at this time * Patient wishes to return home * Per SS is planing on taking patient to different hospital * was not available for goals of care discussion Suggestion * I would sustain from further diagnostic studies based on very severe diagnosis and poor prognosis * Comfort care would be the best level of care for this very ill patient. Home hospice would be appropriate for patient as she wishes to go home * Offer pleasure food * Promote hygiene Palliative care will remain on board to offer support to patient and . I will call him again later in the day.
--- NOTE | 2018-05-23 18:34 | CP.PCM.PN ---
Subjective - Date & Time of Evaluation Date of Evaluation: 05/23/18 Time of Evaluation: 18:30 - Subjective Subjective: Patient condition is unchanged. Her called me by phone and I discussed with him her condition. He wants to have her seen at [facility] [place]. Her tests and the Doctors reports suggest an advanced cancer of the lung or liver with metastases. Her Tumor markers are elevated. Objective - Vital Signs/Intake and Output Vital Signs (last 24 hours): Temp Pulse Resp BP Pulse Ox 97.2 F L 110 H 20 115/74 97 05/23/18 07:00 05/23/18 07:00 05/23/18 07:00 05/23/18 07:00 05/23/18 07:00 Intake and Output: 05/23/18 05/23/18 06:59 18:59 Intake Total 800 1250 Balance 800 1250 - Medications Medications: Current Medications Acetaminophen (Tylenol 325mg Tab) 650 mg PO Q6 PRN PRN Reason: Pain, moderate (4-7) Last Admin: 05/23/18 03:11 Dose: 650 mg Sodium Chloride (Sodium Chloride 0.9%) 1,000 mls @ 100 mls/hr IV .Q10H VERO Last Admin: 05/23/18 16:25 Dose: Not Given Ceftriaxone Sodium (Rocephin Iv 1 Gm Duplex) 50 mls @ 100 mls/hr IVPB DAILY VERO; Protocol Last Admin: 05/23/18 11:00 Dose: 100 mls/hr Influenza Virus Vaccine (Flucelvax Quad [id number] Syr) 60 mcg IM .ONCE ONE Stop: 05/24/18 14:01 Pantoprazole Sodium (Protonix Inj) 40 mg IVP DAILY VERO Last Admin: 05/23/18 11:00 Dose: 40 mg Pneumococcal Polyvalent Vaccine (Pneumovax 23 Vaccine) 0.5 ml IM .ONCE ONE Stop: 05/24/18 14:01 - Labs Labs: 05/23/18 06:13 05/21/18 15:08 PT 21.0 SECONDS (9.7-12.2) H 05/22/18 11:13 INR 1.9 05/22/18 11:13 APTT 27 SECONDS (21-34) 05/22/18 11:13 Assessment and Plan (1) Generalized weakness Status: Chronic (2) Metastatic cancer Status: Acute (3) Eaton-Lambert myasthenic syndrome Status: Acute (4) Seizures Status: Acute (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 Status: Acute (6) Histoplasmosis Assessment & Plan: Lack of Eosinophils in her Blood work is not favoring a Histoplasmosis diagnosis. Status: Acute
--- NOTE | 2018-05-24 05:10 | EEG ---
DATE: 05/23/2018 The record is obtained for a history of malignancy in the liver and the lungs. She also has depression and altered mental status. Seizures and Encephalopathy are to be ruled out. The record was obtained while the patient was awake and drowsy. The record was symmetrically equal on both sides with a velocity of six to seven cycles per second. The record showed 2 periods of dysrhythmia in the left temporal, parietal, occipital area for several seconds followed by slow waves. This was repeated in another period in the same area. There were periods of drowsiness during which attenuation and slowing of the record and theta waves were seen. The record did not show any changes with photic stimulation. Hyperventilation was omitted. In summary, this is an abnormal record significant for generalized slowing which might be consistent with encephalopathy, and there were periods that showed left temporal, parietal, occipital dysrhythmia on two occasions, and seizures are to be ruled out. Further assessment by 24-hour video EEG is recommended. Terence Avery MD JR
[2018-05-24] MEDS: Sodium Chloride 0.9% 1,000 ML IV SCH ×2 (05:59→08:47)
--- NOTE | 2018-05-24 06:40 | DS ---
DISCHARGE DIAGNOSES: 1. Internal carotid artery stenosis with cerebrovascular accident. 2. Hypertension. 3. Hyperlipidemia. HISTORY OF PRESENT ILLNESS: This is an elderly female with a history of stroke. The patient was reluctantly admitted for elective carotid endarterectomy. She underwent carotid endarterectomy. She is doing well, and she is for discharge. The patient initially had dizziness. The patient underwent carotid endarterectomy yesterday after cardiac evaluation and clearance. She did well, and she was feeling better. PHYSICAL EXAMINATION: LUNGS: Clear. CARDIOVASCULAR: S1, S2 regular. ABDOMEN: Soft, nontender. Bowel sounds are positive. PLAN: Discharge the patient home on aspirin, Plavix, statin, and blood pressure medication with outpatient followup. Demetri Johnson MD
--- NOTE | 2018-05-24 10:39 | PN ---
DATE: 05/24/2018 LOCATION: 653, bed B. SUBJECTIVE: This is a 72-year-old female seen and examined in rounds early today without any significant clinical changes or reported active bleeding, but appeared to be sick with generalized weakness and malaise as well as somewhat poor oral intake. The patient had MRI of the head, the brain yesterday. Report is seen with no evidence of metastatic disease. Today's lab results still pending. However, the most recent lab results showed, yesterday, leukocytosis of 18.3, hemoglobin 8, hematocrit 25.9 with low indices highly suggestive of hypochromic microcytic anemia. PT is still elevated and the patient has excessive increase of CEA as well as CA 19-9 and CA-125 antigen, which I have never seen before in my career that high. PHYSICAL EXAMINATION: GENERAL: This is a 72-year-old female, afebrile with pulse of 104, respiratory 20-22, blood pressure 102/68. HEENT: Pale dry oral mucoid membrane. Nonicteric sclerae. LUNGS: Few scattered crepitation. Decreased air entry at bases. HEART: Positive S1 and S2. ABDOMEN: Soft. Bowel sounds are present. No mass or organomegaly. No rebound tenderness or guarding. EXTREMITIES: Without significant clubbing, cyanosis or edema. NEUROLOGIC: No reported new neurological deficits, sensory or motor. IMPRESSION: 1. Anemia most likely secondary to cancerous chronic disease. 2. Abnormal CAT scan of the abdomen and pelvis. 3. Excessive increase of cancer markers, indicative of possible colon carcinoma with metastatic lesion to the liver and the pancreas. 4. Known history of pulmonary embolism and pneumonia with bradycardia before. SUGGESTIONS: 1. Continue current management. 2. Peripheral versus central hyperalimentation. In record, the patient refusing any aggressive GI workup so far and conservative treatment to follow. Balbnia Doran MD
[2018-05-24] MEDS ORDERED: Influenza Vaccine 60 mcg/0.5 mL SYR (4YR UP) IM ONE (14:00)
[2018-05-24] MEDS ORDERED: Pneumococcal 23-Valent Vaccine IM ONE (14:00)
[2018-05-24] MEDS: Piperacillin/Tazobact 3.375 GM in Sodium Chloride 100 ML IVPB SCH (17:48)
--- NOTE | 2018-05-24 18:33 | CP.PCM.PN ---
Subjective - Date & Time of Evaluation Date of Evaluation: 05/24/18 Time of Evaluation: 18:28 - Subjective Subjective: Patient condition has not changed. She is depressed and feels down. Dr Ayoub is considering a possible large intestine malignancy due to Positive tumor markers, including CEA. Abnormal EEG significant for general slowing and Left Frontal, Parietal and Temporal Dysrhythmia. She needs a 24 hours Video EEG to Rule out seizures. She never had any seizures and needs to be evaluated. She is Tachycardiac 110 1nd 115 and at times has low Blood Pressure. Objective - Vital Signs/Intake and Output Vital Signs (last 24 hours): Temp Pulse Resp BP Pulse Ox 97.4 F L 114 H 20 108/77 98 05/24/18 07:00 05/24/18 07:00 05/24/18 07:00 05/24/18 07:00 05/24/18 07:00 - Medications Medications: Current Medications Acetaminophen (Tylenol 325mg Tab) 650 mg PO Q6 PRN PRN Reason: Pain, moderate (4-7) Last Admin: 05/24/18 13:34 Dose: 650 mg Piperacillin Sod/Tazobactam (Sod 3.375 gm/ Sodium Chloride) 100 mls @ 200 mls/hr IVPB Q8H VERO; Protocol Last Admin: 05/24/18 17:48 Dose: 200 mls/hr Pantoprazole Sodium (Protonix Inj) 40 mg IVP DAILY VERO Last Admin: 05/24/18 09:48 Dose: 40 mg - Labs Labs: 05/23/18 06:13 05/21/18 15:08 PT 21.0 SECONDS (9.7-12.2) H 05/22/18 11:13 INR 1.9 05/22/18 11:13 APTT 27 SECONDS (21-34) 05/22/18 11:13 Assessment and Plan (1) Generalized weakness Status: Chronic (2) Metastatic cancer Status: Acute (3) Eaton-Lambert myasthenic syndrome Status: Acute (4) Seizures Status: Acute (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
[2018-05-25] MEDS: Piperacillin/Tazobact 3.375 GM in Sodium Chloride 100 ML IVPB SCH ×3 (01:35→17:38)
[2018-05-25 08:24] LABS: BASO % 0.1 % (0.0-2.0); HEMOGLOBIN 9.6 g/dL (11.0-16.0); LYMPH # 1.2 K/uL (1.0-4.3); LYMPH % 6.5 % (20.0-40.0); MEAN CELL VOLUME 83.3 fL (81.0-99.0); MEAN CORPUSCULAR HEMOGLOBIN 26.6 pg (27.0-31.0); MEAN CORPUSCULAR HGB CONC 31.9 g/dL (33.0-37.0); MEAN PLATELET VOLUME 7.1 fL (7.2-11.7); NEUT # 16.8 K/uL (1.8-7.0); NEUT % 88.4 % (50.0-75.0); NRBC % 0.1 % (0.0-2.0); PLATELET COUNT 828 K/uL (130-400); RBC 3.62 Mil/uL (3.80-5.20); RED CELL DISTRIBUTION WIDTH 19.2 % (11.5-14.5)
[2018-05-25 08:34] LABS: BLOOD UREA NITROGEN 16 mg/dL (7-17); CALCIUM 8.3 mg/dl (8.6-10.4); GFR NON-AFRICAN AMERICAN > 60
[2018-05-25 09:44] LABS: BANDS 2 % (0-2); LYMPHOCYTE 3 % (20-40); MONOCYTE 5 % (0-10); NEUTROPHIL 90 % (50-75); TOTAL CELLS COUNTED 100
[2018-05-25 09:45] LABS: ANISOCYTOSIS SLIGHT; PLATELET ESTIMATE MARKEDLY INCREASED (NORMAL)
[2018-05-25 09:46] LABS: HYPOCHROMIC SLIGHT; OVALOCYTES SLIGHT; POIKILOCYTOSIS SLIGHT; POLYCHROMIC SLIGHT; SPHEROCYTES SLIGHT
--- NOTE | 2018-05-25 11:05 | PN ---
DATE: 05/25/2018 LOCATION: 653, bed B. SUBJECTIVE: This 72-year-old female seen and examined early in rounds today without reported significant clinical changes, seen and examined recently by the Neurology animal nutrition consultant, Dr. Mejias, appears to be somewhat depressed, complaining of loss of appetite. No reported actual chest pain, palpitation, chills or fever, or evidence of active bleeding. Most recent lab results showed leukocytosis of 18.3 with low hemoglobin and hematocrit with low indices highly suggestive of hypochromic microcytic anemia with thrombocytosis. Today's lab results still pending. Most recently done brain MRI, official report is seen. PHYSICAL EXAMINATION: GENERAL: A 72-year-old female. VITAL SIGNS: Afebrile with pulse of 106, respiratory rate 20 to 22 blood pressure 120/80. HEENT: Showed pale dry mucous membrane. Nonicteric sclerae. LUNGS: Few scattered crepitation. Decreased air entry at bases. HEART: Positive S1 and S2. ABDOMEN: Soft with mild distention with mild generalized tenderness. No mass or organomegaly. No rebound tenderness or guarding. EXTREMITIES: Without significant clubbing, cyanosis or edema but with evidence of muscle wasting syndrome. NEUROLOGIC: No reported new neurological deficits, sensory or motor. No reported new local deficits. IMPRESSION: 1. Anemia. 2. Abnormal CAT scan of the abdomen and pelvis. 3. Abnormal cancer markers, highly suggestive of but not confirmative of gastrointestinal tract cancer lesion. 4. Known history of pulmonary aneurysm, pneumonia with cardiac arrhythmia, recently tachycardia. 5. Thrombocytosis, of unclear etiology. SUGGESTIONS: 1. Continue conservative treatment. 2. This case was discussed before with Oncology, Hematology consult and the patient had been refusing any aggressive GI workup so far. We will follow up conservatively with you. Balbina Doran MD
[2018-05-25] MEDS ORDERED: Potassium Chloride 20 mEq ER Tab PO ONE (18:00)
--- NOTE | 2018-05-25 19:46 | PN ---
DATE: 05/25/[address] Demetri Johnson. SUBJECTIVE: The patient denies any chest pain or shortness of breath. The patient's is at the bedside and is about to assist with her lunch meal. PHYSICAL EXAMINATION: VITAL SIGNS: Blood pressure 115/75, heart rate 110, temperature 97.6, and respirations 20. HEENT: Pale conjunctivae. CHEST: Diminished breath sounds at the bases. HEART: S1 and S2 regular. ABDOMEN: Mild ascites. EXTREMITIES: 2+ pitting edema. LABORATORY DATA: Chest, abdomen, and pelvis CT scan with IV contrast only and multiple emboli present in the right pulmonary artery and more distal left lower lobe pulmonary arteries. Clots were also noted in IVC at minimum left common iliac vein; chronicity unknown. Right pleural thickening with pleural fluid, possibly loculated. Severe dextroscoliosis, thoracic, no gross bony lytic lesions. Large expansile mass essentially replacing the right hepatic lobe with mass effect and displacement of the right kidney, malignancy is suspected. Brain MRI showed no acute intracranial abnormality. Moderate chronic microangiopathic changes. 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 ASSESSMENT: 1. Abdominal mass, displacing the right hepatic lobe with mass effect, displacement of the right kidney. 2. Multiple bilateral pulmonary emboli. 3. Anemia. PLAN: Continue current Protonix 40 mg intravenously daily, IV Zosyn 3.375 g intravenously every 8 hours. Supplement [id number] as the potassium level today is 3.3. I will start therapeutic subcutaneous Lovenox as there is no contraindication. I will discuss with Dr. Demetri Johnson, the need for IVC filter placement and schedule the patient for an echocardiogram. Trenton Vilchis MD
--- NOTE | 2018-05-25 20:19 | CP.PCM.PN ---
Subjective - Date & Time of Evaluation Date of Evaluation: 05/24/18 Time of Evaluation: 06:00 - Subjective Subjective: dictated Objective - Vital Signs/Intake and Output Vital Signs (last 24 hours): Temp Pulse Resp BP Pulse Ox 97.9 F 18 L 112 H 118/85 98 05/25/18 15:05 05/25/18 15:05 05/25/18 15:05 05/25/18 15:05 05/25/18 15:05 Intake and Output: 05/25/18 05/26/18 18:59 06:59 Intake Total 550 Balance 550 - Medications Medications: Current Medications Acetaminophen (Tylenol 325mg Tab) 650 mg PO Q6 PRN PRN Reason: Pain, moderate (4-7) Last Admin: 05/24/18 13:34 Dose: 650 mg Enoxaparin Sodium (Lovenox) 40 mg SC Q12 VERO Piperacillin Sod/Tazobactam (Sod 3.375 gm/ Sodium Chloride) 100 mls @ 200 mls/hr IVPB Q8H VERO; Protocol Last Admin: 05/25/18 17:38 Dose: 200 mls/hr Pantoprazole Sodium (Protonix Inj) 40 mg IVP DAILY VERO Last Admin: 05/25/18 10:03 Dose: 40 mg - Labs Labs: 05/25/18 08:12 05/25/18 08:12 PT 21.0 SECONDS (9.7-12.2) H 05/22/18 11:13 INR 1.9 05/22/18 11:13 APTT 27 SECONDS (21-34) 05/22/18 11:13
--- NOTE | 2018-05-25 20:20 | CP.PCM.PN ---
Subjective - Date & Time of Evaluation Date of Evaluation: 05/24/18 Time of Evaluation: 11:00 - Subjective Subjective: dictated Objective - Vital Signs/Intake and Output Vital Signs (last 24 hours): Temp Pulse Resp BP Pulse Ox 97.9 F 18 L 112 H 118/85 98 05/25/18 15:05 05/25/18 15:05 05/25/18 15:05 05/25/18 15:05 05/25/18 15:05 Intake and Output: 05/25/18 05/26/18 18:59 06:59 Intake Total 550 Balance 550 - Medications Medications: Current Medications Acetaminophen (Tylenol 325mg Tab) 650 mg PO Q6 PRN PRN Reason: Pain, moderate (4-7) Last Admin: 05/24/18 13:34 Dose: 650 mg Enoxaparin Sodium (Lovenox) 40 mg SC Q12 VERO Piperacillin Sod/Tazobactam (Sod 3.375 gm/ Sodium Chloride) 100 mls @ 200 mls/hr IVPB Q8H VERO; Protocol Last Admin: 05/25/18 17:38 Dose: 200 mls/hr Pantoprazole Sodium (Protonix Inj) 40 mg IVP DAILY VERO Last Admin: 05/25/18 10:03 Dose: 40 mg - Labs Labs: 05/25/18 08:12 05/25/18 08:12 PT 21.0 SECONDS (9.7-12.2) H 05/22/18 11:13 INR 1.9 05/22/18 11:13 APTT 27 SECONDS (21-34) 05/22/18 11:13
--- NOTE | 2018-05-25 20:53 | CP.PCM.PN ---
Subjective - Date & Time of Evaluation Date of Evaluation: 05/25/18 Time of Evaluation: 20:50 - Subjective Subjective: Patient has high platelet count and her condition is unchanged. She is depressed and refuses any aggressive treatment. She has leukocytosis 19K which is similar to her previous readings. She has Neutrophila 90%. She has high platelet count 825 K which is less than before. She is worked up for Malignancy, but no tests are confirming her malignancy yet. Objective - Vital Signs/Intake and Output Vital Signs (last 24 hours): Temp Pulse Resp BP Pulse Ox 97.9 F 18 L 112 H 118/85 98 05/25/18 15:05 05/25/18 15:05 05/25/18 15:05 05/25/18 15:05 05/25/18 15:05 Intake and Output: 05/25/18 05/26/18 18:59 06:59 Intake Total 550 Balance 550 - Medications Medications: Current Medications Acetaminophen (Tylenol 325mg Tab) 650 mg PO Q6 PRN PRN Reason: Pain, moderate (4-7) Last Admin: 05/24/18 13:34 Dose: 650 mg Enoxaparin Sodium (Lovenox) 40 mg SC Q12 VERO Piperacillin Sod/Tazobactam (Sod 3.375 gm/ Sodium Chloride) 100 mls @ 200 mls/h r IVPB Q8H VERO; Protocol Last Admin: 05/25/18 17:38 Dose: 200 mls/hr Pantoprazole Sodium (Protonix Inj) 40 mg IVP DAILY VERO Last Admin: 05/25/18 10:03 Dose: 40 mg - Labs Labs: 05/25/18 08:12 05/25/18 08:12 PT 21.0 SECONDS (9.7-12.2) H 05/22/18 11:13 INR 1.9 05/22/18 11:13 APTT 27 SECONDS (21-34) 05/22/18 11:13 Assessment and Plan (1) Generalized weakness Status: Chronic (2) Metastatic cancer Status: Acute (3) Eaton-Lambert myasthenic syndrome Status: Acute (4) Seizures Status: Acute (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
[2018-05-25] MEDS: Enoxaparin 40 mg Syringe SC SCH (21:21)
--- NOTE | 2018-05-26 02:14 | PN ---
DATE: 05/25/2018 SUBJECTIVE: The patient remains with leukocytosis, generalized weakness, cachexia, malaise, and fatigue. PHYSICAL EXAMINATION: VITAL SIGNS: Blood pressure is 110/70, pulse 74, respiratory rate 20, temperature 98. LUNGS: Clear. CARDIOVASCULAR: S1 and S2, regular. ABDOMEN: Soft. ASSESSMENT: 1. Advanced gastrointestinal malignancy. 2. Dehydration. 3. Pneumonia. 4. Gastrointestinal bleed. 5. Deep venous thrombosis. PLAN: The patient is status post blood transfusion. Monitor the patient. Demetri Johnson MD
--- NOTE | 2018-05-26 06:27 | PN ---
DATE: 05/24/2018 ONCOLOGY EVALUATION HISTORY OF PRESENT ILLNESS: This is a 72-year-old woman who came to my office. She could barely stand up, very cachectic. Radiologically, she has nodules in her lungs and a huge mass in the liver, and she has radiologic diagnosis of a cancer, unclear origin. The patient underwent colonoscopy and liver biopsy at [facility] about two weeks ago. The report showed cancer in the liver, but this was 0.1 cm x 1 mm ____ tissue. So it is difficult to say if we really have pathologic diagnosis here but radiologically. She remains bedridden, she can barely get out of bed. Severe temporal wasting noted. PHYSICAL EXAMINATION: NODES: Nonpalpable in the axillary, cervical, supraclavicular, or inguinal regions. BREASTS: Shows no mass, dimpling, or discharge. LUNGS: Clear. The patient is able to lie flat in bed. HEART: S1, S2. ABDOMEN: Shows no liver, no spleen. No tenderness and no rebound. No ascites. EXTREMITIES: No edema. CENTRAL NERVOUS SYSTEM: Plantars are downgoing bilaterally. LABORATORY DATA: She has had extensive testing here. Her hemoglobin has been around 8. Also she had pulmonary emboli at [facility] and she was put on Eliquis. Otherwise, her laboratory showed AST of 193, bilirubin of 1.4, alkaline phosphatase 724, albumin is 3 and globulin 4.2. The CEA is 6000 and CA 19-9 is greater than 10,000 and the CA-125 is 95. So based on all this the alpha alpha-fetoprotein is 3.1. ASSESSMENT AND PLAN: This indicates that she probably has some metastatic carcinoma, possibly pancreatic. In any event, I have spoken to the and what he tells me is that when she was at [facility] about two weeks ago, she was seen by an oncologist Dr. Peterson and was told that she has cancer and that there is nothing that could be done for her. He then came to my office for a second opinion. After reviewing all these things, I said to him that I believe that we do have a diagnosis of cancer based on the x-rays; that she seems to be terminal. I believe she should be on hospice, however, if they wanted treatment, if she is able to come to my office, I will do a liquid biopsy and see if there is any mutations that are actionable. He on the other hand sent me a note saying that he wants a third opinion. He wants to take her some place for a third opinion. The review of the latest x-ray shows an MRI of the brain with old infarcts with left frontal, inferior, superior, subcortical white matter with glial cyst and the CAT scan of the abdomen shows a large hypodense mass like lesion, almost replacing, filling the right hepatic lobe. The extension onto the left hepatic lobe is well ____ 15 cm x 17 cm, and they do not see the pancreas well. Gallbladder is okay, and she has an inferior vena cava filter that seems to be present. So at this point, I think that she should have symptom control and it is unclear to me what he wants to do, but I in good conscience, cannot put her through more liver biopsies. At this point, the patient just should be two week, take anything. I have asked palliative care to see the patient, and they did see her, did see him. Their conclusion was that there was no directive on the chart, and she left ___ she did not discuss everything with the yet. Julito Rosas MD
--- NOTE | 2018-05-26 06:32 | CON ---
DATE: 05/21/[address] Doran to Dr. Demetri Johnson. I was called for GI consultation by the primary medical team. The patient is seen and fully examined on 05/21/2018. The entire chart is reviewed including but not limited to the most recent lab and radiology study results, current and the previous medication list, current and the previous medical events. Case discussed at length with the admitting MD as well as all the staff in the floor and the residential solar sales consultant at the time of my GI consultation and physical examination on 05/21/2018. HISTORY OF PRESENT ILLNESS: This is a 72-year-old female who was admitted to the hospital through the emergency room with generalized weakness and malaise, very poor oral intake with reported possible metastatic CA of the liver, but without any active GI bleeding, significant chest pain or palpitation, but some shortness of breath. The patient has seen an oncologist and assistant boys track coach as an outpatient for a second opinion and she was directed to be admitted through the emergency room for that reason. Most recent lab results post admission showed white blood cells of 19.7, hemoglobin dropped to 8.5, hematocrit 27.7 with low indices highly suggestive of hypochromic microcytic anemia with thrombocytosis of 819 with abnormal ABGs, creatinine of 0.5. Blood glucose 90, calcium 7.7 with mildly elevated total bilirubin, AST and increased alkaline phosphatase with low albumin 3.1. CAT scan of the chest, abdomen and pelvis done at the time of the admission, official report is seen including large mass lesion at the area of the right hepatic lobe with mass effect, displacement of the right kidney. PAST MEDICAL HISTORY: Including but not limited to: 1. Pulmonary embolism. 2. COPD with bronchitis. 3. Pneumonia. 4. Peptic ulcer disease. 5. Recently suspected hepatic CA, apparently diagnosed in another local hospital by radiology study results only. FAMILY HISTORY: Noncontributory. SOCIAL HISTORY: As per records, also the patient denied any recent alcohol intake or cigarette smoking. CURRENT MEDICATIONS: Medication lists were reviewed. ALLERGIES TO MEDICATIONS: UNKNOWN. PHYSICAL EXAMINATION: GENERAL: A 72-year-old female, appears to be cachectic, very weak, afebrile with pulse of 108, respiratory 20 to 22, blood pressure 110/84. HEENT: Showed pale, dry mucoid membrane. Nonicteric sclerae. HEART: Positive S1 and S2 with increased rate. LUNGS: Few scattered crepitation. Decreased air entry at bases. ABDOMEN: Soft with [id number] distention with like lesion at the right upper quadrant. No mass. No other mass or organomegaly. No rebound tenderness or guarding. RECTAL: The patient refused. EXTREMITIES: Without significant clubbing or cyanosis, but evidence of muscle wasting syndrome. IMPRESSION: 1. Abnormal CAT scan of the abdomen and pelvis with hepatic mass lesion, primary versus secondary. 2. Rule out occult GI malignancy including the liver and colon as well as including the pancreas and colon as well as primary lesion in the stomach. 3. Anemia. 4. Rule out gastrointestinal blood loss upper versus lower. 5. Past medical history as reported above. SUGGESTIONS: 1. Agree with your plan. 2. Cancer markers. 3. Peripheral hyperalimentation. 4. Endoscopic evaluation of the GI tract when the patient is more stable clinically. 5. Further recommendation to follow. Thank you for letting me participate in your patient's case management. Balbina Doran MD
[2018-05-26] MEDS: Enoxaparin 40 mg Syringe SC SCH (09:23)
[2018-05-26] MEDS: Piperacillin/Tazobact 3.375 GM in Sodium Chloride 100 ML IVPB SCH (09:25)
--- NOTE | 2018-05-26 14:40 | PN ---
DATE: 05/26/2018 LOCATION: 653, bed B SUBJECTIVE: This 72-year-old female seen and examined early in rounds without significant clinical changes. Denied this morning any chest pain, palpitation, significant shortness of breath or abdominal pain, but still with less oral intake. The entire chart is reviewed including but not limited to the most recent lab and radiology study results, current and the previous medication list and today's lab results still pending including today's ultrasound results. PHYSICAL EXAMINATION: GENERAL: A 72-year-old female. VITAL SIGNS: Afebrile with pulse of 102, respiratory rate 20-22, blood pressure 110/72. HEENT: Showed pale dry oral mucous membrane. Nonicteric sclerae. LUNGS: Few scattered crepitation. Decreased air entry at bases. HEART: Positive S1 and S2. ABDOMEN: Soft with slight generalized tenderness. No mass or organomegaly. No rebound tenderness or guarding. EXTREMITIES: With mild lower extremity edematous changes. No reported new neurological deficits, sensory or motor, no new focal deficits. IMPRESSION: 1. Abdominal mass with displace of the right hepatic lobe as well as the right kidney. 2. Re-exacerbation of peptic ulcer disease. 3. Multiple bilateral pulmonary emboli. 4. Anemia most likely secondary to above. 5. Excessive abnormal cancer markers, highly suggestive, but not confirmative of gastrointestinal tract cancer lesion. 6. Reported history of cardiac arrhythmia, pneumonia with thrombocytosis of unclear etiology. SUGGESTIONS: 1. Continue current management. 2. Again, the patient is refusing any aggressive GI procedure and oncology/cardiology workup is in process. 3. Further recommendation to follow. Balbina Doran MD
[2018-05-26 16:00] VITALS: BP 109/76; PULSE 112; RESP 28; TEMP 97.2; O2SAT 96
--- NOTE | 2018-05-26 16:27 | CP.PCM.PN ---
Subjective - Date & Time of Evaluation Date of Evaluation: 05/26/18 Time of Evaluation: 11:00 - Subjective Subjective: alert, awake, no sob or chest pains, no acute distress. Objective - Vital Signs/Intake and Output Vital Signs (last 24 hours): Temp Pulse Resp BP Pulse Ox 97.2 F L 112 H 28 H 109/76 96 05/26/18 15:59 05/26/18 15:59 05/26/18 15:59 05/26/18 15:59 05/26/18 15:59 Intake and Output: 05/26/18 05/26/18 06:59 18:59 Intake Total 350 Output Total 100 Balance 250 - Medications Medications: Current Medications Acetaminophen (Tylenol 325mg Tab) 650 mg PO Q6 PRN PRN Reason: Pain, moderate (4-7) Last Admin: 05/24/18 13:34 Dose: 650 mg Enoxaparin Sodium (Lovenox) 40 mg SC Q12 VERO Last Admin: 05/26/18 09:23 Dose: 40 mg Piperacillin Sod/Tazobactam (Sod 3.375 gm/ Sodium Chloride) 100 mls @ 200 mls/hr IVPB Q8H VERO; Protocol Last Admin: 05/26/18 09:25 Dose: 200 mls/hr Pantoprazole Sodium (Protonix Inj) 40 mg IVP DAILY VERO Last Admin: 05/26/18 09:23 Dose: 40 mg - Labs Labs: 05/25/18 08:12 05/25/18 08:12 PT 21.0 SECONDS (9.7-12.2) H 05/22/18 11:13 INR 1.9 05/22/18 11:13 APTT 27 SECONDS (21-34) 05/22/18 11:13 Assessment and Plan - Assessment and Plan (Free Text) Assessment: 72 year old female with metastatic lung cancer, seen and examined. Remains lethargic, weak and short of breath. Room air saturation 94%. As per her , he wants to take to [facility] for a third opinion. Discussed with DR Fay and plan to discharge home with her home on po Augmentin.
[2018-05-26] MEDS ORDERED: Potassium Chloride 20 mEq ER Tab PO ONE (18:00)
--- NOTE | 2018-05-26 22:56 | CP.PCM.PN ---
Subjective - Date & Time of Evaluation Date of Evaluation: 05/26/18 Time of Evaluation: 15:45 - Subjective Subjective: Patient did not have any change in her condition. The is interested in taking her to a 3rd opinion at [facility] [place]. She was very affected by the bad news of her medical evolution and the is depressed after a 48 years relationship and marriage. She was discharged home safely. Objective - Vital Signs/Intake and Output Vital Signs (last 24 hours): Temp Pulse Resp BP Pulse Ox 97.2 F L 112 H 28 H 109/76 96 05/26/18 15:59 05/26/18 15:59 05/26/18 15:59 05/26/18 15:59 05/26/18 15:59 Intake and Output: 05/26/18 05/27/18 18:59 06:59 Intake Total 350 Output Total 100 Balance 250 - Labs Labs: 05/25/18 08:12 05/25/18 08:12 PT 21.0 SECONDS (9.7-12.2) H 05/22/18 11:13 INR 1.9 05/22/18 11:13 APTT 27 SECONDS (21-34) 05/22/18 11:13 Assessment and Plan (1) Generalized weakness Status: Chronic (2) Metastatic cancer Status: Acute (3) Eaton-Lambert myasthenic syndrome Assessment & Plan: Ca Channels Abs is pending and Acetyl Choline Receptor Abs are pending. Status: Acute (4) Seizures Assessment & Plan: Abnormal EEG Showing a left side dysrrythmia, she refused to have a Video EEG as she said she doesn't want any further testing. 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 Status: Acute
--- NOTE | 2018-05-27 07:41 | CP.PCM.DIS ---
Provider - Provider Date of Admission: 05/20/18 16:38 Attending physician: Demetri Johnson MD Consults: 05/20/18 13:31 Physician Consult Stat Comment: *ALREADY CALLED Consulting Provider: Julito Rosas Consulting Physician: Julito Rosas Reason for Consult: LIVER CA, AMS 05/21/18 01:42 Nursing Referral for Palliative Care Routine Comment: Physician Instructions: Reason For Exam: Score 4,Metastatic Ca 05/21/18 02:17 Case Management Referral Routine Comment: Physician Instructions: Reason For Exam: From [facility] Home Reason for Referral: Discharge Planning Nursing Referral for Wound Care Routine Comment: Physician Instructions: Reason For Exam: Redness to sacral area and abrasion 05/21/18 14:15 Gastroenterology Consult Routine Comment: Consulting Provider: Balbina Ayoub Consulting Physician: Balbina Ayoub Reason for Consult: gi bleed 05/21/18 20:21 Neurology Consult Routine Comment: Consulting Provider: Terence Avery Consulting Physician: Terence Avery Reason for Consult: Generalized weakness. 05/22/18 12:47 Palliative Care Consult Routine Comment: Consulting Provider: Jyoti Khan Physician Instructions: TO Sheryl TABOR Reason For Exam: Goals of care discussion Time Spent in preparation of Discharge (in minutes): 30 Hospital Course - Lab Results Lab Results: Micro Results 05/21/18 00:30 Blood Blood Culture - Final NO GROWTH AFTER 5 DAYS 05/21/18 00:30 Blood Gram Stain - Final TEST NOT PERFORMED 05/20/18 12:49 Blood Blood Culture - Final NO GROWTH AFTER 5 DAYS 05/20/18 12:49 Blood Gram Stain - Final TEST NOT PERFORMED 05/20/18 13:08 Urine,Clean Catch Urine Culture - Final No Growth (<1,000 CFU/ML) Most Recent Lab Values WBC 19.0 K/uL (4.8-10.8) H 05/25/18 08:12 RBC 3.62 Mil/uL (3.80-5.20) L 05/25/18 08:12 Hgb 9.6 g/dL (11.0-16.0) L 05/25/18 08:12 Hct 30.2 % (34.0-47.0) L 05/25/18 08:12 MCV 83.3 fL (81.0-99.0) 05/25/18 08:12 MCH 26.6 pg (27.0-31.0) L 05/25/18 08:12 MCHC 31.9 g/dL (33.0-37.0) L 05/25/18 08:12 RDW 19.2 % (11.5-14.5) H 05/25/18 08:12 Plt Count 828 K/uL (130-400) H 05/25/18 08:12 MPV 7.1 fL (7.2-11.7) L 05/25/18 08:12 Neut % (Auto) 88.4 % (50.0-75.0) H 05/25/18 08:12 Lymph % (Auto) 6.5 % (20.0-40.0) L 05/25/18 08:12 [place] % (Auto) 5.0 % (0.0-10.0) 05/25/18 08:12 Eos % (Auto) 0.0 % (0.0-4.0) 05/25/18 08:12 Baso % (Auto) 0.1 % (0.0-2.0) 05/25/18 08:12 Neut # (Auto) 16.8 K/uL (1.8-7.0) H 05/25/18 08:12 Lymph # (Auto) 1.2 K/uL (1.0-4.3) 05/25/18 08:12 [place] # (Auto) 1.0 K/uL (0.0-0.8) H 05/25/18 08:12 Eos # (Auto) 0.0 K/uL (0.0-0.7) 05/25/18 08:12 Baso # (Auto) 0.0 K/uL (0.0-0.2) 05/25/18 08:12 Neutrophils % (Manual) 90 % (50-75) H 05/25/18 08:12 Band Neutrophils % 2 % (0-2) 05/25/18 08:12 Lymphocytes % (Manual) 3 % (20-40) L 05/25/18 08:12 Monocytes % (Manual) 5 % (0-10) 05/25/18 08:12 Platelet Estimate Markedly increased (NORMAL) H 05/25/18 08:12 Large Platelets Present 05/21/18 15:08 Giant Platelets Present 05/20/18 12:45 Polychromasia Slight 05/25/18 08:12 Hypochromasia (manual) Slight 05/25/18 08:12 Poikilocytosis (manual Slight 05/25/18 08:12 Anisocytosis (manual) Slight 05/25/18 08:12 Spherocytes Slight 05/25/18 08:12 Target Cells Slight 05/21/18 15:08 Ovalocytes Slight 05/25/18 08:12 [place] Cells Slight 05/21/18 15:08 Smear Path Review 05/20/18 12:45 PT 21.0 SECONDS (9.7-12.2) H 05/22/18 11:13 INR 1.9 05/22/18 11:13 APTT 27 SECONDS (21-34) 05/22/18 11:13 pO2 24 mm/Hg (30-55) L 05/20/18 12:40 VBG pH 7.46 (7.32-7.43) H 05/20/18 12:40 VBG pCO2 45 mmHg (40-60) 05/20/18 12:40 VBG HCO3 29.1 mmol/L 05/20/18 12:40 VBG Total CO2 33.4 mmol/L (22-28) H 05/20/18 12:40 VBG O2 Sat (Calc) 30.4 % (40-65) L 05/20/18 12:40 VBG Base Excess 7.1 mmol/L (0.0-2.0) H 05/20/18 12:40 VBG Potassium 4.8 mmol/L (3.6-5.2) 05/20/18 12:40 Sodium 137.0 mmol/l (132-148) 05/20/18 12:40 Chloride 103.0 mmol/L (98-107) 05/20/18 12:40 Glucose 94 mg/dl (65-105) 05/20/18 12:40 Lactate 2.9 mmol/L (0.7-2.1) H 05/20/18 12:40 Sodium 139 mmol/L (132-148) 05/25/18 08:12 Potassium 3.3 mmol/L (3.6-5.2) L 05/25/18 08:12 Chloride 109 mmol/L (98-107) H 05/25/18 08:12 Carbon Dioxide 24 mmol/L (22-30) 05/25/18 08:12 Anion Gap 10 (10-20) 05/25/18 08:12 BUN 16 mg/dL (7-17) 05/25/18 08:12 Creatinine 0.5 mg/dL (0.7-1.2) L 05/25/18 08:12 Est GFR ( Amer) > 60 05/25/18 08:12 Est GFR (Non-Af Amer) > 60 05/25/18 08:12 POC Glucose (mg/dL) 114 mg/dL (65-110) H 05/20/18 12:20 Random Glucose 90 mg/dL (65-105) 05/25/18 08:12 Hemoglobin A1c 4.6 % (4.2-6.5) 05/22/18 06:48 Lactic Acid 1.5 mmol/L (0.7-2.1) 05/20/18 15:34 Calcium 8.3 mg/dl (8.6-10.4) L 05/25/18 08:12 Total Bilirubin 1.4 mg/dL (0.2-1.3) H 05/20/18 12:45 AST 193 U/L (14-36) H 05/20/18 12:45 ALT 31 U/L (9-52) 05/20/18 12:45 Alkaline Phosphatase 724 U/L (38-126) H 05/20/18 12:45 Total Creatine Kinase 290 U/L (30-135) H 05/20/18 12:45 CK-MB (Mass) 0.40 ng/mL (0.0-3.38) 05/20/18 12:45 Troponin I < 0.0120 ng/mL (0.00-0.120) 05/20/18 12:45 Total Protein 7.3 g/dL (6.3-8.3) 05/20/18 12:45 Albumin 3.1 g/dL (3.5-5.0) L 05/20/18 12:45 Globulin 4.2 gm/dL (2.2-3.9) H 05/20/18 12:45 Albumin/Globulin Ratio 0.7 (1.0-2.1) L 05/20/18 12:45 Triglycerides 90 mg/dL (0-149) 05/22/18 06:48 Cholesterol 130 mg/dL (0-199) 05/22/18 06:48 LDL Cholesterol Direct 84 mg/dL (0-129) 05/22/18 06:48 HDL Cholesterol 19 mg/dL (30-70) L 05/22/18 06:48 Alpha Fetoprotein 3.1 ng/mL (0.0-7.5) 05/22/18 11:13 Carcinoembryonic Ag 6090.0 ng/mL (0-3.0) H 05/22/18 11:13 CA 19-9 Antigen > 45512 U/mL (0-37) H 05/22/18 11:13 CA 125 Antigen 95.8 U/mL (0-35) H 05/22/18 11:13 TSH 3rd Generation 1.19 mIU/L (0.46-4.68) 05/22/18 06:48 Venous Blood Potassium 4.8 mmol/L (3.6-5.2) 05/20/18 12:40 Urine Color Maddie (YELLOW) 05/20/18 13:08 Urine Clarity Turbid (Clear) 05/20/18 13:08 Urine pH 5.0 (5.0-8.0) 05/20/18 13:08 Ur Specific [place] 1.024 (1.003-1.030) 05/20/18 13:08 Urine Protein 2+ mg/dL (NEGATIVE) H 05/20/18 13:08 Urine Glucose (UA) Normal mg/dL (Normal) 05/20/18 13:08 Urine Ketones Negative mg/dL (NEGATIVE) 05/20/18 13:08 Urine Blood Negative (NEGATIVE) 05/20/18 13:08 Urine Nitrate Negative (NEGATIVE) 05/20/18 13:08 Urine Bilirubin Negative (NEGATIVE) 05/20/18 13:08 Urine Urobilinogen Normal mg/dL (0.2-1.0) 05/20/18 13:08 Ur Leukocyte Esterase Neg Eva/uL (Negative) 05/20/18 13:08 Urine WBC (Auto) 5 /hpf (0-5) 05/20/18 13:08 Urine RBC (Auto) 2 /hpf (0-3) 05/20/18 13:08 Ur Squamous Epith Cells 2 /hpf (0-5) 05/20/18 13:08 Amorphous Sediment Rare /ul (<OCC) H 05/20/18 13:08 Urine Bacteria Rare (<OCC) 05/20/18 13:08 Stool Occult Blood Positive (NEGATIVE) H 05/20/18 14:01 CÉSAR 6 Profile Negative (NEGATIVE) 05/22/18 06:48 RPR Nonreactive (NONREACTIVE) 05/22/18 06:48 Blood Type A POSITIVE 05/24/18 17:41 Antibody Screen Negative 05/24/18 17:41 Discharge Exam - Head Exam Head Exam: ATRAUMATIC, NORMAL INSPECTION, NORMOCEPHALIC Discharge Plan - Discharge Medications Prescriptions: Amoxicillin/Potassium Clav [Augmentin 500-125 Tablet] 1 each PO BID #14 tablet Apixaban [Eliquis] 2.5 mg PO BID #60 tab Saccharomyces Boulardi [Florastor] 250 mg PO BID #20 cap Pantoprazole Sodium [Protonix] 40 mg PO DAILY #30 ect Ondansetron HCl [Zofran] 4 mg PO Q8H PRN #20 tablet PRN Reason: Nausea/Vomiting Ondansetron [Zofran] 4 mg PO Q8H PRN #20 tab PRN Reason: Nausea/Vomiting - Follow Up Plan Condition: SERIOUS Disposition: HOME/ ROUTINE Instructions: Saccharomyces boulardii, Heart Healthy Diet, Pulmonary Embolism (Blood Clot in the Lungs) (DC), Generalized Weakness (DC), Amoxicillin and Clavulanate, Normocytic Normochromic Anemia (DC) Additional Instructions: follow up with PMD in 1 week home care/ VNS for weakness from metastatic cancer follow up with the oncologyst as afdvised Referrals: Demetri Johnson MD [Staff Provider] -
--- NOTE | 2018-05-28 04:32 | DS ---
DISCHARGE DIAGNOSES: 1. Malignant neoplasm. 2. Gastrointestinal bleed. 3. Deep venous thrombosis. 4. Hypokalemia. HISTORY OF PRESENT ILLNESS: This is a 72-year-old white female who is cachectic, weak. She was initially diagnosed at [facility] with a malignancy of GI origin. The patient went home and she did not feel well. She had a rectal bleed. The patient was transfused. GI evaluated the patient. The patient did well. The patient is feeling better now. Her was given the option of possible hospice, which he refused, and he wants to take his to Hospital, and she has been discharged on p.o. Augmentin. The patient is stable for discharge. She has active GI bleed, but she is not bleeding at the moment, so we will not start Eliquis. Demetri Johnson MD
--- NOTE | 2018-05-29 11:15 | PQF ---
PROVIDER RESPONSE TEXT: Sepsis clinical REVIEWER QUERY TEXT: Rule Out Sepsis Clarification Rule out Sepsis is documented in the Medical Record. Please clarify whether: -- Patient has sepsis - Please document confirmed, suspected or probable causative organism - Please document confirmed, suspected or probable localized infection - Please clarify if sepsis is related to a device - Please clarify if sepsis was present on admission -- Sepsis was ruled out (include corresponding diagnosis for patient?s clinical picture and treatment ) -- Patient had sepsis which is resolved -- Other, please specify The patient's Clinical Indicators include: GENERALIZED WEAKNESS===05/21 R/O SEPSIS DOCUMENTED MULTIPLE MED. PROBLEMS PLEASE CLARIFY AND DOCUMENT IF 'SEPSIS'===WAS R/I OR R/O. Query created by: Marizol Jones on 05/28/2018 8:08 AM Electronically signed by: Demetri Johnson MD 05/29/2018 11:12 AM
== END 2018-05-26 16:30 | disposition home or self-care (01) | DRG 374 ==
LOC: C.ER 12:11 → C.9E 16:38 → C.6T 21:03
PROVIDERS: ADMIT Internal Medicine; ATTEND Internal Medicine
DX: C18.9 Malignant neoplasm of colon, unspecified (principal); I26.99 Other pulmonary embolism without acute cor pulmonale; A41.9 Sepsis, unspecified organism; C22.9 Malignant neoplasm of liver, not specified as primary or secondary; R64 Cachexia; Z68.1 Body mass index [BMI] 19.9 or less, adult; K92.2 Gastrointestinal hemorrhage, unspecified; G70.80 Lambert-Eaton syndrome, unspecified; C34.90 Malignant neoplasm of unspecified part of unspecified bronchus or lung; C79.40 Secondary malignant neoplasm of unspecified part of nervous system; E46 Unspecified protein-calorie malnutrition; J90 Pleural effusion, not elsewhere classified; J44.0 Chronic obstructive pulmonary disease with (acute) lower respiratory infection; E78.5 Hyperlipidemia, unspecified; E86.0 Dehydration; E87.6 Hypokalemia; I10 Essential (primary) hypertension; Z74.01 Bed confinement status; Z51.5 Encounter for palliative care; R32 Unspecified urinary incontinence; R56.9 Unspecified convulsions; B39.9 Histoplasmosis, unspecified; D63.8 Anemia in other chronic diseases classified elsewhere; F32.9 Major depressive disorder, single episode, unspecified; Z86.73 Personal history of transient ischemic attack (TIA), and cerebral infarction without residual deficits; D73.89 Other diseases of spleen